=== PATIENT | female | born 1955 | race Caucasian/White ===

== ENCOUNTER 2020-11-23 21:36 | Inpatient (IN) | payer OTHER, SELFPAY ==
[2020-11-23 22:38] VITALS: BMI 31.7
[2020-11-23 22:41] VITALS: BP 156/69; PULSE 70; RESP 17; TEMP 36.4; O2SAT 99
--- NOTE | 2020-11-23 23:29 | DI.MRI.S_ITS ---
PROCEDURE: MR STROKE Pre- and post-contrast brain MRI, non-contrast brain MR angiogram, pre- and postcontrast neck MR angiogram INDICATIONS: Suspected TIA TECHNIQUE: Brain: Noncontrast axial T1 spin echo, axial T2 fast spin echo, sagittal and axial FLAIR, coronal T2 fast spin echo, axial gradient echo, axial diffusion and ADC through the brain. After the administration of contrast, axial 3D VIBE of the cranial vasculature and brain. Brain MRA: Non-contrast 3-D time of flight MR angiogram, with multiple gmrclpx-lwiinkxuk-sxrdvkqrhg (MIP) reformats performed. Neck MRA: Axial and sagittal TruFISP through the neck. Coronal dynamic MR angiogram during administration of contrast in the arterial and venous phases, with 3-dimenstional qiuvnrt-brpsqxtrw-tizvtjbcfv (MIP) reformats constructed from subtraction images. COMPARISON: None. FINDINGS: Image quality: Excellent. BRAIN: CSF spaces: Ventricles are normal in size and shape. Basal cisterns are patent. No extra-axial fluid collections. Brain: Within the right tashi, there is abnormal diffusion-weighted signal, as on series 26, image 59. There is associated dark signal seen on the ADC map as well as mild developing T2 weighted signal through this region. No intracranial bleeds or mass effects. Alfaro-white matter interface is normal. Brainstem appears normal. Normal intravascular flow voids are present. No abnormal intracranial enhancement. Skull and face: Calvarial marrow signal is normal. Orbits appear normal. Sinuses: An apparent mucous retention cysts can be seen within the inferior right maxillary sinus. Sinuses and mastoids are otherwise clear. BRAIN MR ANGIOGRAM: Anterior circulation: Intracranial internal carotid arteries are normal in size and enhancement. There is a hypoplastic right A1 segment, with a corresponding robust left A1 segment. This is considered to be a normal developmental variant of the [place], of typically no clinical consequence. The flow within the paired anterior cerebral arteries is otherwise normal and symmetric. The flow within the middle cerebral arteries is normal and symmetric. The anterior communicating artery is seen. No stenoses, occlusions, or aneurysms. Posterior circulation: The visualized portions of the vertebral arteries demonstrate normal caliber, and join to form a normal appearing basilar artery. Areas of left P1 segment narrowing can be seen, which measure up to 70%. The flow within the posterior cerebral arteries is otherwise normal and symmetric. No stenoses, occlusions, or aneurysms. NECK MR ANGIOGRAM: Carotids: Great vessels demonstrate a conventional anatomy as they arise from the aortic arch. The origins of the common carotid arteries appear patent. The calibers and courses of both common carotid arteries are normal. The bifurcation regions demonstrate atherosclerotic irregularity. There is 60-70% narrowing seen involving the right proximal internal carotid artery. There is 40-50% narrowing seen involving the left proximal internal carotid artery. The more distal internal carotid arteries demonstrate normal course and caliber. Posterior circulation: The origins of the vertebral arteries appear patent. More superior portions of both vertebral arteries demonstrate normal course and caliber, and join to form a normal appearing basilar artery. Miscellaneous: Subclavian arteries appear patent. Pre-contrast images through the neck show no soft tissue abnormalities. IMPRESSION: BRAIN MRI: Subacute right tashi infarct. BRAIN MR ANGIOGRAM: Hypoplastic right A1 segment noted, which is considered to be a developmental variant. Up to 70% narrowing seen involving the left P1 segment. NECK MR ANGIOGRAM: Focal narrowing is seen involving the proximal internal carotid arteries, right worse than left. Dictated by: Bud Ventura M.D. on 11/24/2020 at 9:28 Approved by: Bud Ventura M.D. on 11/24/2020 at 9:35
--- NOTE | 2020-11-23 23:35 | PC.NURSE ---
Pt to room 221 via ambulance from [facility]. Slider board and multiple staff members to transfer pt to bed. Pt is able to make needs and wants known to staff members. Oriented to call light and requested pt not attempt out of bed without calling for staff assistance. Pt verbalizes understanding. ANGEL Jane in to see patient.
--- NOTE | 2020-11-23 23:37 | DI.ECHO.S_ITS ---
[facility]---------+ [facility] +---------+ : : [address] : [place] : : : : [id number] : : : : Phone: [phone]---------+ Echocardiogram Report + + :Name: TAMIKA ARREOLA Study Date: 11/25/2020 Height: 71 in : :[facility] ReadingLocation: Weight: 227 lb : : Gender: Female BSA: 2.2 m2 : :: 1955 Age: 65 yrs BP: 146/62 mmHg: :Reason For Study: TIA : :Ordering Physician: Nataliya UREÑAformed By: Chelsea Mercado : :Referring: DARIAN UREÑA : + + Interpretation Summary The left ventricle is normal in size and wall thickness. Left ventricular systolic function appears normal without focal wall motion abnormalities. The ejection fraction is estimated to be 60-65%. Diastolic parameters suggest a relaxation abnormality of the left ventricle, consistent with probable normal filling pressures. The right ventricle is normal in size and function. Pulmonary artery pressures cannot be estimated because of the lack of a measurable TR jet velocity but the IVC suggests a CVP of around 3 mmHg. The left atrium is moderately dilated. Right atrial size is normal. There is no Doppler evidence for an interatrial shunt. Injection of contrast documented no interatrial shunt. There is no significant valvular heart disease. The aortic root is normal size. Procedure: A two-dimensional transthoracic echocardiogram with color flow and Doppler was performed. The study quality was technically adequate. There is no prior echocardiogram noted for this patient. A saline contrast injection was performed to assess for cardiac shunting. The patient was in sinus rhythm with heart rates between 61-71 bpm during the exam. Left Ventricle: The left ventricle is normal in size and wall thickness. Left ventricular systolic function appears normal without focal wall motion abnormalities. The ejection fraction is estimated to be 60-65%. Diastolic parameters suggest a relaxation abnormality of the left ventricle, consistent with probable normal filling pressures. Right Ventricle: The right ventricle is normal in size and function. Atria: The left atrium is moderately dilated. Right atrial size is normal. There is no Doppler evidence for an interatrial shunt. Injection of contrast documented no interatrial shunt. Mitral Valve: The mitral valve is normal in structure and function. There is trace mitral regurgitation. Aortic Valve: The aortic valve is trileaflet. The aortic valve opens well. There is no aortic valve stenosis. No aortic regurgitation is present. Tricuspid Valve: The tricuspid valve is normal in structure and function. There is trace tricuspid regurgitation. Pulmonary artery pressures cannot be estimated because of the lack of a measurable TR jet velocity but the IVC suggests a CVP of around 3 mmHg. Pulmonic Valve: The pulmonic valve leaflets are thin and pliable; valve motion is normal. There is no pulmonic valvular regurgitation. There is no significant valvular heart disease. Great Vessels: The aortic root is normal size. The dimensions of the ascending aorta are normal. The IVC is of normal diameter and collapses greater than 50% with a sniff. This suggests a low right atrial pressure of 3 mm Hg. Pericardium/ Pleura There is no pericardial effusion. There is no pleural effusion. MMode/2D Measurements & Calculations LVIDd: 4.5 cm LVOT diam: 2.0 cm LVIDs: 3.1 cm Ao root diam: 3.2 cm FS: 32.6 % asc Aorta Diam: 2.8 cm IVSd: 0.87 cm Ao Arch Diam (Prox Trans): 3.3 cm LVPWd: 0.73 cm LV cummings. diameter/BSA (cm/m^2): 2.0 LV sys. diameter/BSA (cm/m^2): 1.4 LA A2 area: 26.6 cm2 RA long axis: 5.0 cm LA A4 area: 21.6 cm2 RA area: 19.6 cm2 LA length (vol): 5.3 cm RA vol: 65.4 ml LA vol: 91.9 ml RA : 29.4 ml/m2 LA vol index: 41.3 ml/m2 IVC diam: 1.6 cm RVD1 (basal): 3.9 cm TAPSE: 2.3 cm Doppler Measurements & Calculations Ao V2 max: 154.1 cm/sec LVOT Max Mathieu: 92.4 cm/sec Ao V2 mean: 109.8 cm/sec LV V1 max P.4 mmHg Ao max P.5 mmHg LV V1 VTI: 22.2 cm Ao mean P.3 mmHg STORMY(I,D): 2.0 cm2 Ao V2 VTI: 33.9 cm STORMY(V,D): 1.9 cm2 sev ratio: 0.66 STORMY indexed to BSA (cm^2/m^2): 0.92 MV E max mathieu: 65.9 cm/sec PA V2 max: 103.9 cm/sec MV A max mathieu: 102.1 cm/sec PA V2 mean: 73.9 cm/sec MV E/A: 0.65 PA mean P.4 mmHg Med Peak E' Mathieu: 8.3 cm/sec PA pr(Accel): 37.9 mmHg E/E' med: 7.9 Lat Peak E' Mathieu: 5.9 cm/sec E/E' lat: 11.2 E/e' average: 9.6 MV dec time: 0.26 sec SV(LVOT): 69.0 ml Reading Physician:01:44 PM
--- NOTE | 2020-11-23 23:42 | P.HP_ITS ---
History of Present Illness History of Present Illness Date Patient Seen: 11/23/20 Time Patient Seen: 23:00 Chief complaint: Left sided weakness concerning for a CVA Narrative: Lesly Neri is a 65 y.o. female direct admit from [facility] for completion of a TIA workup. Patient has a history of hypertension, hyperlipidemia, depression and anxiety. She states that when she woke up this morning around 8 she started to text her sister and then went back to bed when she woke up at around 10:00 a.m. this morning she found that she had left-sided upper arm and left leg weakness. She found that she was dragging her left foot. She states that she was feeling horribly. She has an eaten all day. She states she has had chills but denies any problems with eating, she endorses having a ?racing heart? which has been going on for 6 months, she denies shor tness of breath or chest pain, she states that she has hunger pangs currently recently had a colonoscopy and felt that ever since the colonoscopy things have been ?wrong? in her abdomen. She states she has a history of chronic pain, she has been itching in her arms of which primary providers have seen her for and do not what know what the reason is, she states that she is depressed in [facility]. She states that she has easy bruising and left hip are arthritis and goes to a chiropractor. She has recently established with Dr. jerome and mildred in [place] as her primary care physician however prefers ?natural? or alternative medicine modalities. Patient states she has been under a lot of stress because she was called to a friend's house and found out that her friend had while out of town and has been cleaning her friends condominium out over the past few months. 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 She has not had the COVID-19 vaccine as she is unsure of its long-term affects. At [facility] they did a CT of the angio of the neck as well as the head both of studies of which were negative. On admission the patient is afebrile, blood pressure 156/79, heart rate 70, respiratory rate 17, oxygen saturation 99% on room air, she weighs 103.2 kg with a BMI of 31.7. Labs sent over for [facility] included WBC of 7.6 RBC 4.75 hemoglobin 14.4 hematocrit of 42.2 and a platelet count of 327, sodium is 135 potassium 4.3 chloride 97 bicarb 27 creatinine 1.1 with a EGFR of 50 BUN 11, glucose 116, calcium 9.6, liver enzymes are all within normal limits, UA was negative for UTI and viral PCR and COVID-19 PCR is negative. EKG done at [facility] was a normal sinus rhythm with normal morphology. A1c is 5.7 not indicating diabetes, Patient History Medical History Depression with anxiety Essential hypertension HLD (hyperlipidemia) Surgical History History of bunionectomy Hx of removal of thyroglossal duct cyst Hx of tonsillectomy Family & Social History Family History Mother Kidney failure Father Congestive heart failure CVA (cerebral vascular accident) Sister CVA (cerebral vascular accident) Diabetes mellitus DVT (deep venous thrombosis) Social History: household members none Prior Living Arrangements Apartment/Condo Safety & Behavioral: Feels Safe in Current Yes Environment Been Physically Hurt or No Threatened By a Person Suicidal Ideation Description None Suicide Plan Description No Plan Tobacco & Substance use: Smoking Status Never smoker alcohol intake never Substance Use Type does not use Meds Home Medications and Allergies Home Medications Medication Instructions Recorded Confirmed Type atorvastatin 40 mg tablet 40 mg PO DAILY 11/24/20 11/24/20 History buspirone 10 mg tablet 10 mg PO DAILY 11/24/20 11/24/20 History cholecalciferol (vitamin D3) 50 75 mcg PO DAILY 11/24/20 11/24/20 History mcg (2,000 unit) tablet (Vitamin D3) clotrimazole 1 % topical cream 1 applic TOPICAL TID 11/24/20 11/24/20 History fluoxetine 20 mg capsule 60 mg PO DAILY 11/24/20 11/24/20 History hydrochlorothiazide 25 mg tablet 25 mg PO DAILY 11/24/20 11/24/20 History hydroxyzine pamoate 25 mg capsule 75 mg PO BEDTIME 11/24/20 11/24/20 History temazepam 15 mg capsule 30 mg PO BEDTIME 11/24/20 11/24/20 History Allergies Allergy/AdvReac Type Severity Reaction Status Date / Time No Known Drug Allergies Allergy Verified 11/24/20 00:40 Review of Systems Review of Systems ROS: Yes All systems reviewed with the patient and are negative except as otherwise documented Exam Vital Signs (past 8 hours): - 11/23/20 22:41 Temperature 97.5 F L Pulse Rate 70 Respiratory Rate 17 Blood Pressure 156/69 H Pulse Oximetry 99 Oxygen Flow Rate 0 Narrative Exam Narrative: Gen: Alert, oriented, well-nourished 65 y.o. female, cushionoid appeariing HEENT: normocephalic, atraumatic, conjunctiva clear, sclera non-icteric, oral mucosa pink and moist Neck: supple, full ROM, no JVD, trachea is midline Resp: Lungs CTA, non-labored breathing CV: RRR, no murmur or rubs Abd: soft, non-tender, normoactive BTs Skin: no lesions or rashes, dry with multiple superficial appearing insect bites on upper extremities Neuro: Alert and oriented X 4 w/no focal deficits. Speech clear and coherent. Extremities: moves all 4 extremities, is ambulatory, negative Bebeto?s sign, trace bilateral edema Psyche: Mildly anxious affect. Objective ECG Impression: EKG done at [facility] was a normal sinus rhythm with normal morphology. Labs Result Diagrams: 11/24/20 00:38 11/24/20 00:38 Labs: Labs sent over for [facility] included WBC of 7.6 RBC 4.75 hemoglobin 14.4 hematocrit of 42.2 and a platelet count of 327, sodium is 135 potassium 4.3 chloride 97 bicarb 27 creatinine 1.1 with a EGFR of 50 BUN 11, glucose 116, karen cium 9.6, liver enzymes are all within normal limits, UA was negative for UTI and viral PCR and COVID-19 PCR is negative. Assessment & Plan Assessment & Plan narrative: Lesly Neri is a 65 y.o. female who will observed overnight for further evaluation to rule out TIA vs CVA. 1. Left sided weakness * GCS is 15 * Cardiac telemetry * NIH score greater than 5 yes * NIH scoring and neuro checks q 4 hours * Dual antiplatelet therapy: Yes initiate clopidogrel 75 mg p.o. daily and aspirin 81 mg p.o. daily * MR stroke scheduled for 11/24 * Complete Echo with bubble study for 11/24 * PT/OT/ST evaluation 2. Hypertension, acute with an admission bp of 156/69, present on admission * Allow for permissive hypertension of 220/110 HR 60 to allow for brain perfusion 3. HLD * Fasting Lipid panel in the am * Patient's home dose of atorvastatin is 40 mg po at bedtime, will start 80 mg at bedtime * Total cholesterol is 208, LDL 116, triglycerides 120 and HDL is 68. Risk stratification * Fasting lipid panel pending for the morning * A1c 5.7% VTE prophylaxis: Wells risk score: 0 Enoxaparin 40 mg subQ daily Consults: none Patient is observation status as her stay is not likely to exceed 2 midnights. FEN: IV saliine lock, Heart healthy diet, CMP and magnesium in the am. Dispo: probable discharge to home Code Status: Full Code as discussed with patient Roseline Neri, sister and surrogate/POA COVID-19 COVID-19 status: Negative Result date/Date tested (Pos, Neg/Pending): 11/23/20 Scores GCS Elfego coma scale eye opening: Spontaneous [place] coma scale verbal response: Orientated [place] coma scale motor response: Obey commands [place] coma scale total score: 15 Wells' Criteria for PE Clinical signs and symptoms of DVT: No PE is #1 Dx or equally likely: No Heart rate > 100: No Immobilization at least 3 days or surg in previous 4 weeks: No History of PE or DVT: No Hemoptysis: No Malignancy w/Treatment within 6 months or palliative: No Wells' PE Score total: 0 Quality VTE Deep Vein Thrombosis/Pulmonary Embolism Present on Admission: No
[2020-11-24] VITALS (7 sets, daily range): BP systolic 135–149; BP diastolic 56–81; PULSE 64–88; RESP 14–18; TEMP 36.1–36.9; O2SAT 94–98
[2020-11-24 00:53] LABS: Add Manual Diff / Slide Review NO; Basophils Absolute Auto 100 /uL (0-100); Basophils Percent Auto 0.8 % (0-2); Eosinophils Absolute Auto 100 /uL (0-450); Eosinophils Percent Auto 0.9 % (2-4); Hematocrit 43.3 % (36-46); Hemoglobin 14.5 g/dL (12.0-16.0); Lymphocytes Absolute Auto 2400 /uL (1100-4500); Lymphocytes Percent Auto 22.4 % (25-40); Mean Corpuscular HGB Conc 33.4 % (30-36); Mean Corpuscular Hemoglobin 29.4 PG (26-34); Mean Corpuscular Volume 87.9 fL (80-100); Monocytes Absolute Auto 900 /uL (0-900); Monocytes Percent Auto 8.5 % (3-14); Neutrophils Absolute Auto 7200 /uL (1500-7000); Neutrophils Percent Auto 67.4 % (50-75); Platelet Count 300 X10^3/uL (150-400); Red Blood Cell Count 4.93 X10^6/uL (4.0-5.2); Red Cell Distribution Width 13.5 % (11.6-14.8); White Blood Cell Count 10.7 X10^3/uL (4.5-11.0)
[2020-11-24 00:58] LABS: BUN Creatinine Ratio 10.1 (6-22); Blood Urea Nitrogen 9 mg/dL (7-17); Calcium 9.9 mg/dL (8.4-10.2); Carbon Dioxide 28 mmol/L (22-32); Chloride 104 mmol/L (98-107); Cholesterol 208 mg/dL (140-199); Estimated Glomerular Filt Rate > 60.0 mL/min (>60); Glucose 105 mg/dL (80-110); HDL Cholesterol 68 mg/dL (40-60); HEMOLYSIS < 15 (0-50); LDL Cholesterol Calculated 116 mg/dL (<100); Potassium 4.3 mmol/L (3.4-5.1); Sodium 139 mmol/L (137-145); Triglycerides 120 mg/dL (35-150)
[2020-11-24 00:59] LABS: Alanine Aminotransferase 24 IU/L (<35); Albumin 4.4 g/dL (3.5-5.0); Albumin Globulin Ratio 1.3 (1.0-2.8); Alkaline Phosphatase 74 U/L (38-126); Aspartate Aminotransferase 28 IU/L (14-36); Bilirubin Total 0.5 mg/dL (0.2-1.3); Bilirubin Unconjugated 0.3 mg/dL (0.0-1.1); Globulin 3.5 g/dL (1.7-4.1); HEMOLYSIS < 15 (0-50); Total Protein 7.9 g/dL (6.3-8.2)
[2020-11-24 01:06] LABS: Hemoglobin A1C% w Est Avg Glu 5.7 % (4.0-6.0)
[2020-11-24 01:16] LABS: Magnesium 2.1 mg/dL (1.6-2.3)
[2020-11-24] MEDS: TEMAZEPAM 15 MG CAPSULE 30 MG PO ×2 (01:21→20:32)
[2020-11-24] MEDS: hydrOXYzine pamoate 25 MG CAPSULE 75 MG PO ×2 (01:21→20:31)
[2020-11-24 01:35] LABS: Thyroid Stimulating Hormone 3.86 uIU/mL (0.47-4.68)
--- NOTE | 2020-11-24 03:14 | PC.NURSE ---
Patient is alert and oriented but anxious and very detailed in responses to questions. She does exhibit fine tremors in bilateral UE and restless legs. NIH was 5 due to left extremity weakness and ataxia. Breath sounds CTA with RA sat of 99%. HRR w/telemetry reading of SR. Denied nausea. BT present and abdomen is soft. Is able to move self in bed but when up to BSC is requiring 2 assists + walker and frequent cueing; is weak in left extremities and drags left leg. Denied pain. Fall risk score is high and bed alarm is activated.
[2020-11-24] MEDS: FLUoxetine 20 MG CAPSULE 60 MG PO (08:34)
[2020-11-24] MEDS: ENOXAPARIN 40 MG/0.4 ML SYRINGE SUBCUT (08:34)
[2020-11-24] MEDS: BUSPIRONE 5 MG TABLET 10 MG PO (08:34)
[2020-11-24] MEDS: ATORVASTATIN 20 MG TABLET 80 MG PO (08:34)
[2020-11-24] MEDS: ASPIRIN EC 81 MG TABLET PO (08:34)
[2020-11-24] MEDS: CLOPIDOGREL 75 MG TABLET PO (08:34)
[2020-11-24] MEDS: SODIUM CHLORIDE 0.9% FLUSH 10 ML IV ×2 (08:45→20:32)
--- NOTE | 2020-11-24 09:24 | OT.IP.EVAL ---
Past Medical History (Last Reviewed 11/24/20 @ 00:13 by ANGEL Lewis) Depression with anxiety Essential hypertension History of bunionectomy HLD (hyperlipidemia) Hx of removal of thyroglossal duct cyst Hx of tonsillectomy Surgical History (Last Reviewed 11/24/20 @ 00:13 by ANGEL Lewis) History of bunionectomy Hx of removal of thyroglossal duct cyst Hx of tonsillectomy Occupational Therapy Inpatient Evaluation/Re-Eval M1 PT/OT-IP Prior Functional Status Start: 11/24/20 11:35 Freq: NEEDED Status: Active Protocol: Document 11/24/20 11:36 CGR (Rec: 11/24/20 11:53 CGR [id number]) Medical Review Prior Functional Status Medical History Reviewed Yes Communication Pt is an effective verbal communicator but displays tangential thinking. Mobility and Gait Pt states that she was IND prior to admit. Activities of Daily Living and IADL's Pt states she was IND prior to admit but that she has a difficult time with LB dressing d/t L hip pain. Social History Household Members none Living Arrangements Apartment/Condo Number of Floors (Floors) One Floor Number of Stairs To Enter/Railing? Pt has no steps to enter Home Environment Standard Height Toilet,Tub/ Shower Additional Social History Comment Pt states that she has a flat bed and is no longer working. Pt with c/o her living situation calling her landlord a slum lord. Pt states that one of her good friends recently and she has been helping to clean out her apartment. M2 OT-IP Current Condition Start: 11/24/20 11:35 Freq: Status: Active Protocol: Document 11/24/20 11:36 CGR (Rec: 11/24/20 11:53 CGR [id number]) Occupational Therapy Current Condition Current Condition Evaluation Date 11/24/20 Treatment Diagnosis L sided weakness Diagnosis Onset Date 11/23/20 M3 OT- IP Subjective and Pain Start: 11/24/20 11:35 Freq: Status: Active Protocol: Document 11/24/20 11:36 CGR (Rec: 11/24/20 11:53 CGR [id number]) OT- Subjective Occupational Therapy Visit Type Type Initial Evaluation Visit Start Time 08:59 Visit Stop Time 09:24 Total Visit Minutes 25 Notes Transport arrived at end of session to take pt for MRI OT Pain Assessment Pain When Pain Assessed At Rest Pain Present Pain Present Denied Pain M4 OT- IP ADL's Start: 11/24/20 11:35 Freq: Status: Active Protocol: Document 11/24/20 11:36 CGR (Rec: 11/24/20 11:53 CGR [id number]) OT [id number] Comments OT Self-Feeding Comments Pt states that she had trouble eating d/t the shaking in her hand. OT ADL-Grooming General Evaluation Grooming Ability Standby Assistance Comments OT Grooming Comments washed hands seated in w/c OT ADL-Oral Care Comments Oral Care Comments not performed OT ADL-Dressing General Eval Lower Body Dressing Ability Minimal Assistance,Moderate Assistance Areas Needing Assistance Socks Comments OT Dressing Comments Performed to the R foot only. Needed assist to get sock onto foot then pt was able to pull it into place OT ADL-Toileting General Evaluation Toileting Ability Minimal Assistance Comments OT Toileting Comments Pt was able to urinate seated on BSC and needed verbal cues for partial stand to perform front pericare but was able to perform without physical assist. OT ADL-Bathing Comments OT Bathing Comments not performed M5 OT- IP IADL's Start: 11/24/20 11:35 Freq: Status: Active Protocol: Document 11/24/20 11:36 CGR (Rec: 11/24/20 11:53 CGR [id number]) OT-Instrumental Activities of Daily Living Deficits IADL Deficits Identified Deficits Home Safety Awareness Awareness of Need for Assistance at Home Decreased Awareness Ability to Problem Solve Emergency Unable to Problem Solve Situations Medication Management Medication Management Comments Concern for pt's ability to perform Money Management Money Management Comments Concern for pt's ability to perform Meal Preparation Meal Preparation Comments Concern for pt's ability to perform News Technical Director News Technical Director Comments Concern for pt's ability to perform Driving Driving Concerns Identified Regarding Safety Driving Comments 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 M6 OT- IP Functional Cognition Start: 11/24/20 11:35 Freq: Status: Active Protocol: Document 11/24/20 11:36 CGR (Rec: 11/24/20 11:53 CGR [id number]) Cognitive Factors Limiting Selfcare Function Cognitive Ability Level of Alertness Alert Patient Orientation Name,Age,Birthday,Month,Date, Year,Day of Week,Place, Situation Attention Span Ability Unable to Focus,Unable to Sustain Attention Ability to Follow Commands Able to Follow One Step Commands with Increased Time, Able to Follow One Step Commands with Repetition Cognitive Comments Cognitive Assessment Comments Pt appears confused and with tangential thinking. Speech therapy planned to perform SLUMS with pt today. OT- Vision and Hearing OT- Hearing Assessment OT- Hearing Assessment Hearing Impaired,Use of Hearing Aids OT- Vision Assessment Visual Acuity Glasses All The Time Visual Attentiveness WFL Occular Pursuits WFL Visual Convergence Impaired Vision Assessment Comments Pt wears bifocals M7 OT- IP Mobility and Balance Start: 11/24/20 11:35 Freq: Status: Active Protocol: Document 11/24/20 11:36 CGR (Rec: 11/24/20 11:53 CGR [id number]) OT-Transfer Assessment Sit to and From Stand Sit to and from Stand Moderate Assistance,1 Person Assistance Transfers Transfer Ability Moderate Assistance,1 Person Assistance Technique Transfer Destination Bedside Commode,Chair, Wheelchair Transfer Technique Stand Step Pivot Devices Transfer Assistive Devices Gait Belt,Front Wheeled Walker Comments Mobility Comments Pt was able to perform stand pivot transfer with mod a from chair to BSC then to the w/c. OT- Balance Assessment Sitting Balance and Reactions Static Sitting Balance Ability Good Dynamic Sitting Balance Ability Fair M8 OT- IP Objective Assessments Start: 11/24/20 11:35 Freq: Status: Active Protocol: Document 11/24/20 11:36 CGR (Rec: 11/24/20 11:53 CGR [id number]) OT Gross Range of Motion Upper Extremity Range of Motion Assessment Left Impaired ROM Impairments AROM on LUE impaired d/t poor control and strength OT Strength Upper Extremity Strength Assessment Left Impaired Comments Strength Comments grossly 3- to 3+ to the LUE OT- Coordination Assessment Upper Extremity Finger to Nose Test Left UE Impaired Finger Tapping Test Left UE Impaired OT-Muscle Tone Assessment Muscle Tone WNL Yes OT Sensation Assessment Edema Edema Absent M9 OT- IP Assessment and Plan Start: 11/24/20 11:35 Freq: Status: Active Protocol: Document 11/24/20 11:36 CGR (Rec: 11/24/20 11:53 CGR [id number]) OT Summary Assessment and Plan Potential Rehabilitation Potential Good Analytic Complexity at Evaluation High Summary OT Impairments Range of Motion,Strength, Balance,Coordination, Functional Cognition, Functional Mobility,Self- Feeding,Grooming,Dressing, Toileting,Bathing,Toilet Transfers,Shower Transfers, Activity Tolerance Progress Towards Goals Slow Progress due to Activity Tolerance,Slow Progress due to Cognition Assessment Summary Pt presents as a high complexity evaluation s/p admit for L sided weakness. Pt displays L sided weakness and possible cognitive deficit. Pt will need SNF upon discharge as pt lives alone and has little to no support. Recommend continued OT services while hospitalized. Goals Self-Feeding Goal Independent Grooming Goal Independent Dressing Goal Independent Toileting Goal Independent Bathing Goal Independent Toilet Transfer Goal Independent Shower Transfer Goal Independent Days to Meet Goals 30 Frequency of Treatment Frequency Of Treatment Once a Day Treatment Plan OT Treatment Plan ADL Training,Functional Cognition Training,Functional Mobility,Neuromuscular Re- education,Therapeutic Exercises,Patient/Family Education,Discharge Planning Other Treatment Recommendations and Next L UE therex, ADLs seated vs Treatment Focus standing. Discharge Recommendations OT Discharge Recommendations SNF Rehab Transportation Needs at Discharge Wheelchair/Cabulance
--- NOTE | 2020-11-24 09:34 | PC.NURSE ---
Day shift: Pt off unit for MRI at approx 0930. Off tele and FREIGHT BREAKER aware.
--- NOTE | 2020-11-24 10:50 | PT.IIE ---
Medical History (Last Reviewed 11/24/20 @ 00:13 by ANGEL Lewis) Depression with anxiety Essential hypertension HLD (hyperlipidemia) Physical Therapy Inpatient Evaluation/Re-Eval M1 PT/OT-IP Prior Functional Status Start: 11/24/20 11:35 Freq: NEEDED Status: Active Protocol: Document 11/24/20 11:36 CGR (Rec: 11/24/20 11:53 CGR [id number]) Medical Review Prior Functional Status Medical History Reviewed Yes Communication Pt is an effective verbal communicator but displays tangential thinking. Mobility and Gait Pt states that she was IND prior to admit. Activities of Daily Living and IADL's Pt states she was IND prior to admit but that she has a difficult time with LB dressing d/t L hip pain. Social History Household Members none Living Arrangements Apartment/Condo Number of Floors (Floors) One Floor Number of Stairs To Enter/Railing? Pt has no steps to enter Home Environment Standard Height Toilet,Tub/ Shower Additional Social History Comment Pt states that she has a flat bed and is no longer working. Pt with c/o her living situation calling her landlord a [place] lord. Pt states that one of her good friends recently and she has been helping to clean out her apartment. M2 PT-IP Current Condition Start: 11/24/20 12:29 Freq: NEEDED Status: Active Protocol: Document 11/24/20 10:50 AB (Rec: 11/24/20 12:42 AB [id number]) Physical Therapy Current Condition Current Condition Evaluation Date 11/24/20 Treatment Diagnosis CVA L sided weakness; difficulty in walking Onset Date 11/23/20 Precautions Other Precautions falls M3 PT-IP Subjective Start: 11/24/20 12:29 Freq: NEEDED Status: Active Protocol: Document 11/24/20 10:50 AB (Rec: 11/24/20 12:42 AB [id number]) Subjective Physical Therapy Visit Type Type Initial Evaluation Visit Start Time 10:50 Visit Stop Time 11:23 Total Visit Minutes 33 Number of AIR BRUSH DECORATOR Visits 0 Physical Therapy Visit Comments Patient Comments agreeable to do PT M4 PT-IP Mobility and Gait Start: 11/24/20 12:29 Freq: NEEDED Status: Active Protocol: Document 11/24/20 10:50 AB (Rec: 11/24/20 12:42 AB [id number]) PT-Bed Mobility Assessment Supine to Sit Supine to Sit Maximum Assistance,1 Person Assistance,Head of Bed Elevated,Bedrails PT-Transfer Assessment Sit to and From Stand Sit to and from Stand Maximum Assistance,1 Person Assistance,Use of Upper Extremities Equipment Transfer Assistive Device Gait Belt,Front Wheeled Walker Orthotic/Prosthetic Devices or Brace: No Transfers Transfer Destination Chair Transfer Technique Stand Step Pivot Transfer Ability Level of Assist Maximum Assistance,1 Person Assistance,2 Person Assistance ,Use of Upper Extremities Comments Mobility Comments pt completed supine to sit HOB elevated max A and max cues. required mod to max A with initial sitting with increase posterior trunk LOB. positioned pt on EOB and required min A for sitting balance. continues to has posterior trunk lean. completed sit to stand from EOB max A and cues and completed step pivot to the chair max A x 1-2 using FWW and max cues. attempted to ambulated but only able to take 1-2 steps using FWW with (+) L knee buckling . assisted to sitting positioned . call light and table placed within reach. Gait Assessment Gait Gait Assistance Required: Maximum Assistance,2 Person Assist Distance (Feet) 1 Able to Maintain Weight Bearing Status No During Gait Assistive Devices Assistive Device Gait Belt,Front Wheeled Walker Orthotic/Prosthetic Devices or Brace: No Factors Limiting Gait Function Factors Limiting Gait Function Decreased Activity Tolerance, Decreased Strength,Difficulty Following Directions,Poor Balance,Poor Safety Awareness Comments Gait Comments pls refer to mobility section for details PT-Balance Assessment Sitting Balance and Reactions Static Sitting Balance Ability Poor Dynamic Sitting Balance Ability Poor Standing Balance and Reactions Static Standing Balance Ability Poor Dynamic Standing Balance Ability Poor Device Used FWW M5 PT-IP Objective Assessments Start: 11/24/20 12:29 Freq: NEEDED Status: Active Protocol: Document 11/24/20 10:50 AB (Rec: 11/24/20 12:42 AB [id number]) Orientation Orientation/Cognition Level of Alertness Alert Orientation Name,Place,Situation Safety Awareness Decreased Safety Awareness Gross Range of Motion Lower Extremity ROM Assessment Within Functional Limits Strength Lower Extremity Strength Assessment Left Impaired Hip 3+/5 Knee 3/5 Muscle Tone Muscle Tone WNL Yes M6 PT-IP Treatment Start: 11/24/20 12:29 Freq: NEEDED Status: Active Protocol: Document 11/24/20 10:50 AB (Rec: 11/24/20 12:42 AB [id number]) Physical Therapy Treatment Education Education Provided Safety M7 PT-IP Assessment and Plan Start: 11/24/20 12:29 Freq: NEEDED Status: Active Protocol: Document 11/24/20 10:50 AB (Rec: 11/24/20 12:42 AB [id number]) PT Summary Assessment and Plan Potential Rehabilitation Potential Good Status of Condition at Evaluation Evolving Summary Impairments Pain,ROM,Strength,Balance, Coordination,Sensation,Tone, Cognition,Bed Mobility, Transfers,Gait,Activity Tolerance Assessment Summary pt requiring max A x 1-2 and max cues with all tasks. Pt with L sided weakness with (+) L knee buckling during standing. pt will benefit from acute rehab vs SNF rehab to improve strength and mobility independence. Goals Bed Mobility Goal Standby Assistance Transfer Goal Minimal Assistance,Front Wheeled Walker Gait Goal Minimal Assistance,Front Wheel Walker Gait Distance 50 Other Goals improve transfers and ambulation using FWW 100 ft CGA Days to Meet Goals 10 Frequency of Treatment Frequency Of Treatment Twice a Day Treatment Plan Physical Therapy Treatment Plan Bed Mobility Training,Transfer Training,Gait Training, Therapeutic Exercise,Balance Retraining,Discharge Planning, Hot or Cold Pack,Neuromuscular Re-ed,Coordination Retraining ,Manual Therapy Precautions Other Precautions falls Recommendations To Nursing Amount of Assist Needed 2 Person Assist Discharge Recommendations PT Discharge Recommendations SNF vs Acute Rehab Transportation Needs at Discharge Wheelchair/Cabulance
--- NOTE | 2020-11-24 12:38 | ST.IPCSEOM ---
Visit Care Team Role Provider Type ANGEL Lewis Admit Provider Physician Attending Provider Referring Provider Specialty: Internal Medicine Address: [address] [place] [address], [id number] Email: [email or web address] Past Medical History (Last Reviewed 11/24/20 @ 00:13 by ANGEL Lewis) Depression with anxiety (Medical) Essential hypertension (Medical) History of bunionectomy (Medical) HLD (hyperlipidemia) (Medical) Hx of removal of thyroglossal duct cyst (Medical) Hx of tonsillectomy (Medical) Speech-Language Pathology Swallow Evaluation INTERNATIONAL GUEST COORDINATOR Clinical Swallow Evaluation Start: 11/24/20 12:15 Freq: Status: Active Protocol: Document 11/24/20 12:16 MG (Rec: 11/24/20 12:38 MG [id number]) Clinical Swallow Evaluation Session Time Visit Start Time 11:30 Visit Stop Time 12:15 Total Visit Minutes 45 Setting Assessment Location Acute Care Visit Type Note Type Initial evaluation Next Note Type Next Note Type Treatment Note Patient Information Identification Type Name,Wristband History Pt is a 65 y.o. female direct admit from [facility] for completion of a TIA workup. Patient has a history of hypertension, hyperlipidemia, depression and anxiety. She states that when she woke up yesterday morning around 8 she started to text her sister and then went back to bed when she woke up at around 10:00 a .m. she found that she had left-sided upper arm and left leg weakness. She found that she was dragging her left foot . She states that she was feeling horribly. She hasn't eaten all day. She states she has had chills but denies any problems with eating, she endorses having a ?racing heart? which has been going on for 6 months, she denies shortness of breath or chest pain, she states that she has hunger pangs currently, recently had a colonoscopy and felt that ever since the colonoscopy things have been ? wrong? in her abdomen. She states she has a history of chronic pain, she has been itching in her arms of which primary providers have seen her for and do not what know what the reason is. She states that she has easy bruising and left hip are arthritis and goes to a chiropractor. 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 Brain MRI done shows subacute right tashi infarct. Subjective Observations Pt was resting in chair at bedside after working with PT. Pt was agreeable to speech/ language evaluation being conducted. Of note, pt has left sided facial weakness and reports that this is new to her. Pt reports that she has TMJ; diagnosed at 21. Pt also reports that prior to hospital admittance, she was gravitating towards a softer diet as she has difficulty with chewing/swallowing. Pt reported that breakfast was challenging for her to consume due to shaking hands and difficulty with mastication. Reported by Patient Other Symptoms Other Comment Protocol following admittance and pt reports history of difficulty swallowing prior to entering hospital. Current Diet Regular,Thin liquids Baseline Feeding Method Needs some assistance Type of Patient Questionnaire (e.g., EAT SLUMS -10, MDADI, etc.) Results Of note, OT requested INTERNATIONAL GUEST COORDINATOR to administer SLUMS assessment due to cognition concerns. Pt scored a 20/30, indicating there is cognitive impairment. Pt reported that she keeps notepads and journals at home to help with her memory and endorses having word finding difficulty. INTERNATIONAL GUEST COORDINATOR presented pt with word finding strategies to apply. Objective Assessment Mental Status Alert,Responsive,Cooperative Oral Integrity WFL Dentition Missing teeth,Decay Lip Function Mild impairment Observation of Lips at Rest Left sided weakness/Drooping Pucker Left sided weakness/drooping Lip Retraction Left sided weakness/Drooping Alternating Pucker/Lip Retraction Reduced range of motion Tongue Function Moderate impairment Observations of Tongue at Rest Within normal limits Tongue Protrusion Reduced range of motion, Reduced strength Tongue Retraction Reduced range of motion, Reduced strength Tongue Lateralization Reduced range of motion, Reduced strength Jaw Function Moderate impairment Observations of Jaw at Rest Reduced range of motion Jaw Opening Reduced range of motion, Reduced strength Jaw Closing Reduced range of motion, Reduced strength Jaw Lateralization Reduced range of motion, Reduced strength Hard/Soft Palate Function Within normal limits Observations of Hard/Soft Palate Within normal limits Nasality Within normal limits Phonation Within normal limits Respiratory Sufficiency Within normal limits Comment Formal OME concludes that there is oral impairments. Pt presents with mild dysarthria secondary to left sided weakness. Overall pt is intelligible in conversational speech with some imprecise articulation noted. Pt overall has reduced range of motion and strength in all articulators. Food and Liquid Trials Position During Assessment Upright (90 degrees) Liquids Trialed Ice chips,Thin Solids Trialed Puree,Dysphagia Mechanical, Dysphagia Advanced Administration Type Tea spoon,Cup single sip,Cup consecutive sips,Straw,Needs some assistance Oral Impairment Moderately impaired Oral Phase Comments On puree and dysphagia mechanical texture, pt masticated properly and no pocketing on the left side was seen. On dysphagia advanced trial, pt masticated for an extended period of time. Pt required multiple liquid washes to clear texture form the oral cavity successfully. Pt reported this texture was very difficult for her to masticate. Pharyngeal Impairment Within functional limits Pharyngeal Phase Comments Laryngeal palpation indicated adequate hyolarngeal elevation and anterior hyoid excursion. On all solid/liquid, no overt s/sx of aspiration were noted . No wet/gurgly voice observed as well. Head turn to the left appeared to improve the swallowing function, as reported by the pt. Fatigue/Endurance Mild fatigue Comment Pt appeared to become slightly fatigued after finishing dysphagia advanced texture. Strategies Attempted Head tilt Response/Comments To the left Findings Swallowing Function Oral phase dysphagia Severity of Swallow Impairment Mildly-moderately impaired Contributing Factors to Swallow Reduced alertness or attention Impairment ,Reduced oral strength/ coordination/sensation, Mastication inefficiency Prognosis Good Based on Age,Duration of symptoms/ severity,Other (comment) Comment Following safe swallowing strategies and motivation. Impact on Safety and Functioning Risk for aspiration Recommendations Instrumental Assessment No Swallowing Treatment Yes Frequency x1-x2 for diet tolerance and further education as needed Recommended Solids Dysphagia Mechanical Recommended Liquids Thin Other Recommendations Head tilt to left Safety Precautions/Swallowing Remain upright (90 degrees) Recommendations during all oral intake,Small bites and sips when eating, Slow rate; swallow between bites,Alternate liquids and solids,Check for pocketing Medication Recommendations As Tolerated Discharge Recommendations detention facility Education Patient/Caregiver Education Described results of evaluation,Patient expressed understanding of evaluation, Patient expressed agreement with goals & treatment plans, Patient expressed understanding of safety precautions,Patient expressed understanding of feeding recommendations,Patient requires further education/ training Goals Short-term Goals Pt will follow safe swallowing precautions with minimal verbal reminders to reduce risk of aspiration. Pt will participate in education re: dysarthria, dysphagia, and memory strategies Long-term Goals Pt will tolerate least restrictive diet without demonstrating overt s/sx of aspiration. Pt will follow safe swallowing precautions independently to reduce risk of aspiration.
--- NOTE | 2020-11-24 13:35 | PT.IPTN ---
Physical Therapy Treatment Note M2 PT-IP Current Condition Start: 11/24/20 12:29 Freq: NEEDED Status: Active Protocol: Document 11/24/20 10:50 AB (Rec: 11/24/20 12:42 AB [id number]) Physical Therapy Current Condition Current Condition Evaluation Date 11/24/20 Treatment Diagnosis CVA L sided weakness; difficulty in walking Onset Date 11/23/20 Precautions Other Precautions falls M3 PT-IP Subjective Start: 11/24/20 12:29 Freq: NEEDED Status: Active Protocol: Document 11/24/20 13:35 AB (Rec: 11/24/20 15:08 AB [id number]) Subjective Physical Therapy Visit Type Type Treatment Note Visit Start Time 13:35 Visit Stop Time 14:00 Total Visit Minutes 25 Number of POULTRY SCALDER Visits 0 Physical Therapy Visit Comments Patient Comments pt is agreeable to do PT M4 PT-IP Mobility and Gait Start: 11/24/20 12:29 Freq: NEEDED Status: Active Protocol: Document 11/24/20 13:35 AB (Rec: 11/24/20 15:08 AB [id number]) PT-Bed Mobility Assessment Sit to Supine Sit to Supine Maximum Assistance,1 Person Assistance,2 Person Assistance ,Head of Bed Elevated,Bedrails PT-Transfer Assessment Sit to and From Stand Sit to and from Stand Maximum Assistance,1 Person Assistance,2 Person Assistance ,Use of Upper Extremities Equipment Transfer Assistive Device Gait Belt,Front Wheeled Walker Orthotic/Prosthetic Devices or Brace: No Transfers Transfer Destination Bed,Toilet Transfer Technique Stand Step Pivot Transfer Ability Level of Assist Maximum Assistance,2 Person Assistance,Use of Upper Extremities Comments Mobility Comments pt sitting on chair. requested to use the toilet. bedside commode postioned next to pt. pt completed sit to stand max A x 1-2 and max cues . continues to have (+) L knee buckling and requires cues and max A for stability. completed step transfer to bedside commode max A x 2 and max cues. pt completed sit to stand from the bedside commode max A x 1 -2 and max cues. ambulated ~ 3 ft to the bed using FWW max A x 2 and max cues. required assist for LLE positioning and propulsion due to weakness and decrease motor control and stability and max cues. completed sit to supine max A and max cues. positioned pt in bed. call light and table placed within reach. Gait Assessment Gait Gait Assistance Required: Maximum Assistance,2 Person Assist Distance (Feet) 3 Able to Maintain Weight Bearing Status Yes During Gait Assistive Devices Assistive Device Gait Belt,Front Wheeled Walker Orthotic/Prosthetic Devices or Brace: No Gait Deviations General Gait Pattern Decreased Stride Length, Decreased Feet Clearance Factors Limiting Gait Function Factors Limiting Gait Function Decreased Activity Tolerance, Decreased Strength,Difficulty Following Directions,Pain,Poor Balance,Poor Safety Awareness Comments Gait Comments pls refer to mobility section for details M5 PT-IP Objective Assessments Start: 11/24/20 12:29 Freq: NEEDED Status: Active Protocol: Document 11/24/20 10:50 AB (Rec: 11/24/20 12:42 AB [id number]) Orientation Orientation/Cognition Level of Alertness Alert Orientation Name,Place,Situation Safety Awareness Decreased Safety Awareness Gross Range of Motion Lower Extremity ROM Assessment Within Functional Limits Strength Lower Extremity Strength Assessment Left Impaired Hip 3+/5 Knee 3/5 Muscle Tone Muscle Tone WNL Yes M6 PT-IP Treatment Start: 11/24/20 12:29 Freq: NEEDED Status: Active Protocol: Document 11/24/20 13:35 AB (Rec: 11/24/20 15:08 AB [id number]) Physical Therapy Treatment Education Education Provided Safety M7 PT-IP Assessment and Plan Start: 11/24/20 12:29 Freq: NEEDED Status: Active Protocol: Document 11/24/20 13:35 AB (Rec: 11/24/20 15:08 AB [id number]) PT Summary Assessment and Plan Potential Rehabilitation Potential Fair Summary Impairments Pain,ROM,Strength,Balance, Coordination,Sensation,Tone, Cognition,Bed Mobility, Transfers,Gait,Activity Tolerance Progress Towards Goals Slow Progress due to Medical Issues,Slow Progress due to Activity Tolerance Assessment Summary pt continues to require max A x 2 for transfers using FWW with (+) L knee buckling. pt also has decrease trunk control affecting balance and mobility. pt will require further PT and will need acute rehab vs SNF to improve mobility and functional independence. Goals Bed Mobility Goal Standby Assistance Transfer Goal Minimal Assistance,Front Wheeled Walker Gait Goal Minimal Assistance,Front Wheel Walker Gait Distance 50 Other Goals improve transfers and ambulation using FWW 100 ft CGA Days to Meet Goals 10 Frequency of Treatment Frequency Of Treatment Twice a Day Treatment Plan Physical Therapy Treatment Plan Bed Mobility Training,Transfer Training,Gait Training, Therapeutic Exercise,Balance Retraining,Discharge Planning, Hot or Cold Pack,Neuromuscular Re-ed,Coordination Retraining ,Manual Therapy Recommendations To Nursing Amount of Assist Needed 2 Person Assist Discharge Recommendations PT Discharge Recommendations SNF vs Acute Rehab Transportation Needs at Discharge Wheelchair/Cabulance
--- NOTE | 2020-11-24 14:36 | CM.DANOTE ---
Addendum entered by Emerita Trinh LPN 11/24/20 15:17: [place] Dur[place] [facility] [place] and phone conversation. He notes they cannot start on the insurance auth process until Thursday but will present to his physician for consideration of acceptance. Referral also to Mart/[email or web address]: she confirms they do contact with [employer] Medicare programs and that beds are expected next week. She is aware that pt is not vaccinated. Will keep pt updated and be following again tomorrow. Original Note: Discharge Planning/Care Management DCP: assessment: case received, EMR reviewed. Discussed this afternoon with Dr. Lauren who notes that pt has a confirmed CVA, OT/PT/WINDOW DRAPER are ordered and best d/c d/c would likely be INPT Rehab if pt's situation and insurance specifics allowed for same. Met then with pt and introduced self and role. Pt is a 65 year old female who admitted to care of hospitalist team last night. Admission status: INPT: confirmed by UR VIKRAM Wilkes. Payer: listed as [facility] (with a note from admission counselor Roseline Meng stating that the info they had for pt's VA insurance seemed not to be complete). pt confirms that she signed up for Medicare and chose a [employer] Plan ([employer] [place] PPO) She provides this card as well as her ID/drivers license and her VA cards. PCP: she notes she is now [facility] to a [facility] community program and so was able to book an appt with Jason Pastrana and with a new pt appointment set for December 10. Asked about vaccine status and explained this may impact where she can obtain her rehab and why. She says she always wears a mask but thus far has chosen not to get vaccinated as she is not feeling that it is safe. Pt is aware that INPT rehab or snf is being recommended and hopes for INPT but undestands snf may also need to be considered. 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 I have been having a hard time during the pandemic. At this time pt is getting max assist with therapy and her first PT eval recommends inpt vs snf. Have updated Dr. Lauren re all this and she acknowledges the challenges involved in the d/c disposition. CM Discharge Assessment Start: 11/24/20 14:32 Freq: Status: Active Protocol: Document 11/24/20 14:33 ITV (Rec: 11/24/20 14:36 ITV [id number]) Discharge Planning Assessment Advance Directives? No History Provided By Patient,Medical Record Has Patient been admitted in last 30 No days? Prior Living Arrangements Apartment/Condo Comment apartment Household Members none Type of transporation used prior to Drives own vehicle admit Independent with ADL's Yes Is patient alert and oriented? Yes Comment inpt acute rehab vs snf Whiteboard Updated in Patient Room with Yes name and ext. # of Environmental Services Manager Review Status In Process
--- NOTE | 2020-11-24 16:53 | PM.PN.1 ---
Subjective Subjective Interval history: Patient is a 65-year-old female admitted to the hospital with an acute stroke. She continues to have significant left arm left leg hemiparesis, patient has left facial droop as well. Exam Vital Signs (past 8 hours): - 11/24/20 09:34 11/24/20 10:00 11/24/20 14:00 Temperature 98.5 F 98.1 F Pulse Rate 80 76 Respiratory Rate 14 18 Blood Pressure 142/62 H 138/72 Pulse Oximetry 97 97 98 11/24/20 16:03 Temperature 97.0 F L Pulse Rate 74 Respiratory Rate 18 Blood Pressure 146/81 H Pulse Oximetry 96 Oxygen Delivery Method Room Air Oxygen Flow Rate 0 Narrative Exam Narrative: Ill-appearing female with left face left arm droop HENMT Other: Left facial droop Mild slurring of her speech Eyes Other: Extraocular muscles are intact Resp Other: Lungs clear to auscultation Cardio Other: Cardiac exam regular rate and rhythm normal S1-S2 GI Other: Abdomen soft nontender nondistended Neuro Other: Patient with left facial droop, left upper extremity hemiparesis, left leg weakness, Extrem Other: Extremity no edema Objective Labs Result Diagrams: 11/24/20 00:38 11/24/20 00:38 Labs: Laboratory Results - last 24 hr 11/24/20 11/24/20 11/24/20 00:38 00:38 00:38 WBC 10.7 RBC 4.93 Hgb 14.5 Hct 43.3 MCV 87.9 MCH 29.4 MCHC 33.4 RDW 13.5 Plt Count 300 Neut % (Auto) 67.4 Lymph % (Auto) 22.4 L [place] % (Auto) 8.5 Eos % (Auto) 0.9 L Baso % (Auto) 0.8 Neut # (Auto) 7200 H Lymph # (Auto) 2400 [place] # (Auto) 900 Eos # (Auto) 100 Baso # (Auto) 100 Sodium 139 Potassium 4.3 Chloride 104 Carbon Dioxide 28 BUN 9 Creatinine 0.89 Estimated GFR > 60.0 BUN/Creatinine Ratio 10.1 Glucose 105 Hemoglobin A1c 5.7 Calcium 9.9 Magnesium Total Bilirubin Conjugated Bilirubin Unconjugated Bilirubin AST ALT Alkaline Phosphatase Total Protein Albumin Globulin Albumin/Globulin Ratio Triglycerides 120 Cholesterol 208 H LDL Cholesterol, Calc 116 H HDL Cholesterol 68 H TSH 11/24/20 11/24/20 11/24/20 00:38 00:38 00:38 WBC RBC Hgb Hct MCV MCH MCHC RDW Plt Count Neut % (Auto) Lymph % (Auto) [place] % (Auto) Eos % (Auto) Baso % (Auto) Neut # (Auto) Lymph # (Auto) [place] # (Auto) Eos # (Auto) Baso # (Auto) Sodium Potassium Chloride Carbon Dioxide BUN Creatinine Estimated GFR BUN/Creatinine Ratio Glucose Hemoglobin A1c Calcium Magnesium 2.1 Total Bilirubin 0.5 Conjugated Bilirubin 0.0 Unconjugated Bilirubin 0.3 AST 28 ALT 24 Alkaline Phosphatase 74 Total Protein 7.9 Albumin 4.4 Globulin 3.5 Albumin/Globulin Ratio 1.3 Triglycerides Cholesterol LDL Cholesterol, Calc HDL Cholesterol TSH 3.86 PFSH Medical History Depression with anxiety Essential hypertension HLD (hyperlipidemia) Surgical History History of bunionectomy Hx of removal of thyroglossal duct cyst Hx of tonsillectomy Family History Mother Kidney failure Father Congestive heart failure CVA (cerebral vascular accident) Sister CVA (cerebral vascular accident) Diabetes mellitus DVT (deep venous thrombosis) Social History household members: none Smoking Status: Never smoker alcohol intake: never Assessment & Plan Assessment & Plan narrative: Impression 1. 65-year-old female admitted to the hospital with an acute CVA -MRI Within the right tashi, there is abnormal diffusion-weighted signal, as on series 26, image 59. There is associated dark signal seen on the ADC map as well as mild developing T2 weighted signal through this region. No intracranial bleeds or mass effects. Alfaro-white matter interface is normal. Brainstem appears normal. Normal intravascular flow voids are present. No abnormal intracranial enhancement. Skull and face: Calvarial marrow signal is normal. Orbits appear normal. Sinuses: An apparent mucous retention cysts can be seen within the inferior right maxillary sinus. Sinuses and mastoids are otherwise clear. -continue Plavix and aspirin -continue to observe blood pressure, for permissive hypertension -consider starting YOMAIRA-inhibitor tomorrow -given patient's history of palpitations, and acute likely embolic infarct, would recommend outpatient event monitor -patient will likely need post discharge rehabilitation, acute versus subacute -continue PT OT and speech 2. Hypertension -will observe closely -initiate blood pressure medication tomorrow 3. Hyperlipidemia -continue high-dose statin 4. DVT prophylaxis -Lovenox 40 mg daily 5. Depression -CONTINUE FLUOXETINE Quality VTE Deep Vein Thrombosis/Pulmonary Embolism Present on Admission: No
--- NOTE | 2020-11-24 22:23 | PC.NURSE ---
Shift note: Patient is AxOx3, can make needs known. NIH 10, increased from day shift of 6. Notified SPEECH INSTRUCTOR who reassessed. Patient having mild to moderate slurring of words, facial droop, unable to move left arm and limited movement of left leg. Even with 2 person assist to BSC, ambulation becoming a concern for safety, transitioned to bedpan for safety which patient used effectively. High fall risk d/t mobility, bed alarm on and functioning, call light in reach.
[2020-11-25] VITALS (9 sets, daily range): BP systolic 117–149; BP diastolic 61–89; PULSE 57–70; RESP 14–21; TEMP 35.6–36.6; O2SAT 96–97
--- NOTE | 2020-11-25 02:17 | PC.NURSE ---
Patient seen and assessed earlier. Is alert and oriented. Does now have a mild left facial droop, left UE ataxia/flaccidity and still with weakness in left LE with resultant NIH of 7. Feels she is slurring some words but not noticeable at this time. Breath sounds CTA with RA sat of 96%. HRR; telemetry reading was SB. BP elevated at 142/89 but allowing for permissive hypertension. Denied nausea. BT present and abdomen is soft. Voided per bedpan. No longer able to use walker due to loss of movement in left UE so assisted into recliner with 3 assists. Patient displays minor right UE tremors and restless legs. Denied pain. Fall risk score is high and bed/chair alarm being used.
[2020-11-25] MEDS: ASPIRIN EC 81 MG TABLET PO (09:59)
[2020-11-25] MEDS: ENOXAPARIN 40 MG/0.4 ML SYRINGE SUBCUT (09:59)
[2020-11-25] MEDS: FLUoxetine 20 MG CAPSULE 60 MG PO (10:00)
[2020-11-25] MEDS: SODIUM CHLORIDE 0.9% FLUSH 10 ML IV ×2 (10:00→20:18)
[2020-11-25] MEDS: CLOPIDOGREL 75 MG TABLET PO (10:00)
[2020-11-25] MEDS: ATORVASTATIN 20 MG TABLET 80 MG PO (10:00)
[2020-11-25] MEDS: BUSPIRONE 5 MG TABLET 10 MG PO (10:13)
--- NOTE | 2020-11-25 12:00 | PT-IP ANOTE ---
Attempted physical therapy twice this morning but pt not available. She was on the phone earlier and now getting Echo. Will check back again this afternoon.
--- NOTE | 2020-11-25 12:36 | P.PN_ITS ---
Subjective Subjective Interval history: 65-year-old female admitted to the hospital with an acute right pontine infarct. 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 She of weakness of the left lower extremity in addition to left facial droop. Overall she feels like she is making some progress. 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 Exam Vital Signs (past 8 hours): - 11/25/20 07:00 11/25/20 08:30 Temperature 97.6 F Pulse Rate 66 Respiratory Rate 18 Blood Pressure 147/63 H Pulse Oximetry 97 97 Oxygen Delivery Method Room Air Oxygen Flow Rate 0 Narrative Exam Narrative: Pleasant female resting comfortably Eyes Other: Extraocular muscles are intact Resp Other: Lungs are clear to auscultation Cardio Other: Cardiac exam: Regular rate and rhythm normal S1-S2 with a 2/6 systolic ejection GI Other: Abdomen soft nontender nondistended Skin Other: Extremities no edema Neuro Other: Speech is fluent No confusion Left facial droop persists Left upper extremity flaccid per hour Left lower extremity inability to dorsiflex or plantar flex the left foot left leg weak as well Objective Labs Result Diagrams: 11/24/20 00:38 11/24/20 00:38 [facility] Medical History Depression with anxiety Essential hypertension HLD (hyperlipidemia) Surgical History History of bunionectomy Hx of removal of thyroglossal duct cyst Hx of tonsillectomy Family History Mother Kidney failure Father Congestive heart failure CVA (cerebral vascular accident) Sister CVA (cerebral vascular accident) Diabetes mellitus DVT (deep venous thrombosis) Social History household members: none Smoking Status: Never smoker alcohol intake: never Assessment & Plan Assessment & Plan narrative: Assessment & Plan narrative: Impression 1. 65-ye ar-old female admitted to the hospital with an acute CVA -MRI Within the right tashi, there is abnormal diffusion-weighted signal, as on series 26, image 59. There is associated dark signal seen on the ADC map as well as mild developing T2 weighted signal through this region. No intracranial bleeds or mass effects. Alfaro-white matter interface is normal. Brainstem appears normal. Normal intravascular flow voids are present. No abnormal intracranial enhancement. Skull and face: Calvarial marrow signal is normal. Orbits appear normal. Sinuses: An apparent mucous retention cysts can be seen within the inferior right maxillary sinus. Sinuses and mastoids are otherwise clear. -continue Plavix and aspirin -start antihypertensive treatment -consider starting YOMAIRA-inhibitor tomorrow -given patient's history of palpitations, and acute likely embolic infarct, would recommend outpatient event monitor -patient will likely need post discharge rehabilitation, acute versus subacute -continue PT OT and speech -await echo results -likely will need acute vs. subacute rehab and discharge given her disability 2. Hypertension -will observe closely -initiate blood pressure medication today 3. Hyperlipidemia -continue high-dose statin 4. DVT prophylaxis -Lovenox 40 mg daily 5. Depression -CONTINUE FLUOXETINE Quality VTE Deep Vein Thrombosis/Pulmonary Embolism Present on Admission: No
[2020-11-25] MEDS: NYSTATIN POWDER 15GM 1 APPLIC TOP ×2 (12:56→20:17)
[2020-11-25] MEDS: lisinopriL 10 MG TABLET PO (12:56)
--- NOTE | 2020-11-25 13:52 | CM.DPC ---
DCP: continued: Spoke by phone with Durga/RADHA Vargasab/[facility] [place]. He discussed case with the physician team. All say that pt is an excellent stroke rehab candidate but concerns remain re the after rehab d/c disosition. He will call the pt for further discussion re this and has also left a message with pt's sister. Pt would like inpt rehab but remains open to snf. Checked in this morning with Mart/[facility]. She reports she did not get the fax until late yesterday as they had so many faxes coming through their line but she remained very agreeable to review and starting the [employer] Medicare snf auth process if appropriate. Please see the DCP assessment note of yesterday for more detail. P: DCP team to keep working on appropriate post hospital rehab setting that [facility]. Pt remains alert and oriented but very compromised physicially. Financial resources seem limited. DCP team will need to look more deeply at this.
--- NOTE | 2020-11-25 16:51 | PT.IPTN ---
Current Diagnoses Cerebral infarction, unspecified (11/23/20) Physical Therapy Treatment Note M2 PT-IP Current Condition Start: 11/24/20 12:29 Freq: NEEDED Status: Active Protocol: Document 11/24/20 10:50 AB (Rec: 11/24/20 12:42 AB [id number]) Physical Therapy Current Condition Current Condition Evaluation Date 11/24/20 Treatment Diagnosis CVA L sided weakness; difficulty in walking Onset Date 11/23/20 Precautions Other Precautions falls M3 PT-IP Subjective Start: 11/24/20 12:29 Freq: NEEDED Status: Active Protocol: Document 11/25/20 16:51 DLM (Rec: 11/25/20 17:41 DLM [id number]) Subjective Physical Therapy Visit Type Type Treatment Note Visit Start Time 15:50 Visit Stop Time 16:51 Total Visit Minutes 61 Number of PRODUCT SAFETY ASSOCIATE Visits 0 Physical Therapy Visit Comments Patient Comments She is very worried about her left side improving. She reports it is hard to feel her left foot. She has been trying to move her left arm all day. Patient Goals Get better M4 PT-IP Mobility and Gait Start: 11/24/20 12:29 Freq: NEEDED Status: Active Protocol: Document 11/25/20 16:51 DLM (Rec: 11/25/20 17:41 DLM [id number]) PT-Bed Mobility Assessment Scooting Scooting to Edge of Bed Contact Guard Assistance, Minimal Assistance,Moderate Assistance PT-Transfer Assessment Sit to and From Stand Sit to and from Stand Minimal Assistance,Moderate Assistance,Use of Upper Extremities Equipment Transfer Assistive Device Gait Belt,Front Wheeled Walker Transfers Transfer Destination Bed,Chair Transfer Technique Stand Step Pivot Transfer Ability Level of Assist Moderate Assistance,Use of Upper Extremities Comments Mobility Comments Two types of transfers attempted this visit: 1) Standing transfer with use of FWW, she needs assist to keep left hand on FWW and to manage left knee buckling, 2) Squat pivot transfer bed to/from bedside commode. Pt sitting up in recliner this visit and wants to stay up. Gait Assessment Gait Gait Assistance Required: Moderate Assistance Assistive Devices Assistive Device Gait Belt,Front Wheeled Walker Factors Limiting Gait Function Factors Limiting Gait Function Decreased Activity Tolerance, Decreased Strength,Poor Balance Comments Gait Comments Attempted stepping in place with FWW, she needs assistance to keep left hand on FWW and a lot of cuing to prevent left knee buckling with weight bearing. She can make small steps with left LE but has poor motor control. PT-Balance Assessment Sitting Balance and Reactions Static Sitting Balance Ability Fair Dynamic Sitting Balance Ability Fair Standing Balance and Reactions Static Standing Balance Ability Fair Dynamic Standing Balance Ability Fair Device Used FWW Comments Other Balance Tests/Deviations/Treatment Static standing, weight : shifting and education for positional awareness M5 PT-IP Objective Assessments Start: 11/24/20 12:29 Freq: NEEDED Status: Active Protocol: Document 11/24/20 10:50 AB (Rec: 11/24/20 12:42 AB [id number]) Orientation Orientation/Cognition Level of Alertness Alert Orientation Name,Place,Situation Safety Awareness Decreased Safety Awareness Gross Range of Motion Lower Extremity ROM Assessment Within Functional Limits Strength Lower Extremity Strength Assessment Left Impaired Hip 3+/5 Knee 3/5 Muscle Tone Muscle Tone WNL Yes M6 PT-IP Treatment Start: 11/24/20 12:29 Freq: NEEDED Status: Active Protocol: Document 11/25/20 16:51 DLM (Rec: 11/25/20 17:41 [facility] [id number]) Physical Therapy Treatment Exercises Exercises Ankle Pumps,Seated Knee Flexion/Extension,Shoulder Flexion,Elbow Flexion/ Extension,Wrist ROM,Hand ROM Education Education Provided Safety Other Treatments Other Treatment Performed seated hip flexion, assisted pt in moving left UE and LE for exercises Strength: left hip flex 2+/5, knee ext 3/5, knee flex 2+/5, DF 1/5, shoulder flexion 0/5 with compensatory shrugging, elbow flex 2+/5, wrist 0/5, music box mechanic 0/5 M7 PT-IP Assessment and Plan Start: 11/24/20 12:29 Freq: NEEDED Status: Active Protocol: Document 11/25/20 16:51 DLM (Rec: 11/25/20 17:41 [facility] [id number]) PT Summary Assessment and Plan Summary Impairments Pain,ROM,Strength,Balance, Coordination,Sensation,Tone, Cognition,Bed Mobility, Transfers,Gait,Activity Tolerance Progress Towards Goals Slow Progress - Other Assessment Summary Lesly is anxious today about her recovery. She shows very good participation in therapy. She is easily distracted but can be brought back to tasks easily. She continues to have significant weakness left UE and LE. She has a mild inattention to left LE more than UE. Her proprioception left UE and LE is impaired. She shows improved ability to manage her left knee buckling in standing. She can verbalize the need to keep her weight on the right side in standing but has difficulty maintaining that position. She likes to stay up in the chair today. Recommend nursing continue to use two person assist for transfers since pt is impulsive and at high risk for falls. She will need extensive rehab to assist in her recovery. Goals Bed Mobility Goal Standby Assistance Transfer Goal Minimal Assistance,Front Wheeled Walker Gait Goal Minimal Assistance,Front Wheel Walker Gait Distance 50 Other Goals improve transfers and ambulation using FWW 100 ft CGA Days to Meet Goals 10 Frequency of Treatment Frequency Of Treatment Twice a Day Treatment Plan Physical Therapy Treatment Plan Bed Mobility Training,Transfer Training,Gait Training, Therapeutic Exercise,Balance Retraining,Discharge Planning, Neuromuscular Re-ed, Coordination Retraining Precautions Other Precautions Falls Recommendations To Nursing Amount of Assist Needed 2 Person Assist Discharge Recommendations PT Discharge Recommendations SNF vs Acute Rehab Transportation Needs at Discharge Wheelchair/Cabulance
[2020-11-25] MEDS: hydrOXYzine pamoate 25 MG CAPSULE 75 MG PO (20:17)
[2020-11-25] MEDS: TEMAZEPAM 15 MG CAPSULE 30 MG PO (20:17)
[2020-11-26] VITALS (10 sets, daily range): BP systolic 126–149; BP diastolic 52–73; PULSE 60–72; RESP 16–20; TEMP 35.9–36.4; O2SAT 96–98
[2020-11-26] MEDS: ATORVASTATIN 20 MG TABLET 80 MG PO (08:49)
[2020-11-26] MEDS: BUSPIRONE 5 MG TABLET 10 MG PO (08:49)
[2020-11-26] MEDS: CLOPIDOGREL 75 MG TABLET PO (08:49)
[2020-11-26] MEDS: lisinopriL 10 MG TABLET PO (08:49)
[2020-11-26] MEDS: ENOXAPARIN 40 MG/0.4 ML SYRINGE SUBCUT (08:49)
[2020-11-26] MEDS: FLUoxetine 20 MG CAPSULE 60 MG PO (08:49)
[2020-11-26] MEDS: ASPIRIN EC 81 MG TABLET PO (08:49)
[2020-11-26] MEDS: SODIUM CHLORIDE 0.9% FLUSH 10 ML IV ×2 (08:50→20:26)
[2020-11-26] MEDS: NYSTATIN POWDER 15GM 1 APPLIC TOP ×2 (08:50→20:25)
[2020-11-26] MEDS: polyethylene glycoL 3350 17 GM POWD.PACK PO (09:07)
[2020-11-26] MEDS: DOCUSATE 100 MG CAPSULE PO (09:07)
--- NOTE | 2020-11-26 10:29 | PT.IPTN ---
Current Diagnoses Cerebral infarction, unspecified (11/23/20) Physical Therapy Treatment Note M2 PT-IP Current Condition Start: 11/24/20 12:29 Freq: NEEDED Status: Active Protocol: Document 11/24/20 10:50 AB (Rec: 11/24/20 12:42 AB [id number]) Physical Therapy Current Condition Current Condition Evaluation Date 11/24/20 Treatment Diagnosis CVA L sided weakness; difficulty in walking Onset Date 11/23/20 Precautions Other Precautions falls M3 PT-IP Subjective Start: 11/24/20 12:29 Freq: NEEDED Status: Active Protocol: Document 11/26/20 10:29 DLM (Rec: 11/26/20 13:20 DLM [id number]) Subjective Physical Therapy Visit Type Type Treatment Note Visit Start Time 09:45 Visit Stop Time 10:29 Total Visit Minutes 44 Number of COATER SMOKING PIPE Visits 0 Physical Therapy Visit Comments Patient Comments She is not sleeping well at night. She is having episodes of anxiety and restlessness. Getting up to the chair helps when she is restless. Patient Goals Get better Therapy Pain Assessment Pain When Pain Assessed During Mobility Pain Present Pain Present Denied Pain M4 PT-IP Mobility and Gait Start: 11/24/20 12:29 Freq: NEEDED Status: Active Protocol: Document 11/26/20 10:29 DLM (Rec: 11/26/20 13:20 DLM [id number]) PT-Bed Mobility Assessment Supine to Sit Supine to Sit Minimal Assistance,Moderate Assistance,Bedrails Scooting Scooting to Edge of Bed Minimal Assistance PT-Transfer Assessment Sit to and From Stand Sit to and from Stand Moderate Assistance,Use of Upper Extremities Equipment Transfer Assistive Device Gait Belt,Front Wheeled Walker Transfers Transfer Destination Chair,Bedside Commode Transfer Technique Stand Step Pivot Transfer Ability Level of Assist Moderate Assistance,Use of Upper Extremities Comments Mobility Comments Pt used bedside commode and second person needed to assist with yumiko-care. She has intermittent buckling left knee with attempting to weight bear. She needs assistance to keep left hand on FWW. Gait Assessment Gait Gait Assistance Required: Moderate Assistance Assistive Devices Assistive Device Gait Belt,Front Wheeled Walker Factors Limiting Gait Function Factors Limiting Gait Function Decreased Activity Tolerance, Decreased Strength,Poor Balance Comments Gait Comments Stepping in place activity with FWW, jessica wrap use on left knee to increase proprioception and facilitate knee control with weight bearing, noted increase in extensor tone in left LE during some functional movements. PT-Balance Assessment Sitting Balance and Reactions Static Sitting Balance Ability Fair Dynamic Sitting Balance Ability Fair Standing Balance and Reactions Static Standing Balance Ability Fair Dynamic Standing Balance Ability Poor Device Used FWW Comments Other Balance Tests/Deviations/Treatment Static standing, weight : shifting and education for positional awareness M5 PT-IP Objective Assessments Start: 11/24/20 12:29 Freq: NEEDED Status: Active Protocol: Document 11/24/20 10:50 AB (Rec: 11/24/20 12:42 AB [id number]) Orientation Orientation/Cognition Level of Alertness Alert Orientation Name,Place,Situation Safety Awareness Decreased Safety Awareness Gross Range of Motion Lower Extremity ROM Assessment Within Functional Limits Strength Lower Extremity Strength Assessment Left Impaired Hip 3+/5 Knee 3/5 Muscle Tone Muscle Tone WNL Yes M6 PT-IP Treatment Start: 11/24/20 12:29 Freq: NEEDED Status: Active Protocol: Document 11/26/20 10:29 DLM (Rec: 11/26/20 13:20 DLM [id number]) Physical Therapy Treatment Exercises Exercises Ankle Pumps,Seated Knee Flexion/Extension Education Education Provided Safety Other Treatments Other Treatment Performed *seated hip flexion, assisted pt in all left LE exercises to complete movements M7 PT-IP Assessment and Plan Start: 11/24/20 12:29 Freq: NEEDED Status: Active Protocol: Document 11/26/20 10:29 DLM (Rec: 11/26/20 13:20 DLM [id number]) PT Summary Assessment and Plan Summary Impairments Pain,ROM,Strength,Balance, Coordination,Sensation,Tone, Cognition,Bed Mobility, Transfers,Gait,Activity Tolerance Progress Towards Goals Slow Progress - Other Assessment Summary Lesly is alert and resting in bed. She has episodes of anxiety and needs brief rests breaks to manage this. She shows great effort with all therapy. She continues to have significant left sided weakness. Noted mild increase in extensor tone in left LE during sit-stand and some standing tasks. She is impulsive and easily distracted so her fall risk continues to be high. Recommend nursing use 2 person assist for all mobility due to her sendy fall risk. She continues to need rehab to assist in her recovery. Goals Bed Mobility Goal Standby Assistance Transfer Goal Minimal Assistance,Front Wheeled Walker Gait Goal Minimal Assistance,Front Wheel Walker Gait Distance 50 Other Goals improve transfers and ambulation using FWW 100 ft CGA Days to Meet Goals 10 Frequency of Treatment Frequency Of Treatment Twice a Day Treatment Plan Physical Therapy Treatment Plan Bed Mobility Training,Transfer Training,Gait Training, Therapeutic Exercise,Balance Retraining,Discharge Planning, Neuromuscular Re-ed, Coordination Retraining Other Recommendations and Next Treatment trial other assistive devices Focus for standing/transfers due to on-going left hand weakness that limits her ability to hold the FWW Precautions Other Precautions Falls Recommendations To Nursing Amount of Assist Needed 2 Person Assist Discharge Recommendations PT Discharge Recommendations SNF vs Acute Rehab Transportation Needs at Discharge Wheelchair/Cabulance
--- NOTE | 2020-11-26 11:34 | OT.IP.TRT ---
Current Diagnoses Cerebral infarction, unspecified (11/23/20) Occupational Therapy Treatment Note M2 OT-IP Current Condition Start: 11/24/20 11:35 Freq: Status: Active Protocol: Document 11/24/20 11:36 CGR (Rec: 11/24/20 11:53 CGR [id number]) Occupational Therapy Current Condition Current Condition Evaluation Date 11/24/20 Treatment Diagnosis L sided weakness Diagnosis Onset Date 11/23/20 M3 OT- IP Subjective and Pain Start: 11/24/20 11:35 Freq: Status: Active Protocol: Document 11/26/20 11:34 CGR (Rec: 11/26/20 11:41 CGR [id number]) OT- Subjective Occupational Therapy Visit Type Type Progress Note Visit Start Time 11:10 Visit Stop Time 11:34 Total Visit Minutes 24 Notes Checked on pt twice prior to OT session. Pt worked with ST and P.T. in am. OT Pain Assessment Pain When Pain Assessed At Rest Pain Present Pain Present Denied Pain M4 OT- IP ADL's Start: 11/24/20 11:35 Freq: Status: Active Protocol: Document 11/24/20 11:36 CGR (Rec: 11/24/20 11:53 CGR [id number]) OT [id number] Comments OT Self-Feeding Comments Pt states that she had trouble eating d/t the shaking in her hand. OT ADL-Grooming General Evaluation Grooming Ability Standby Assistance Comments OT Grooming Comments washed hands seated in w/c OT ADL-Oral Care Comments Oral Care Comments not performed OT ADL-Dressing General Eval Lower Body Dressing Ability Minimal Assistance,Moderate Assistance Areas Needing Assistance Socks Comments OT Dressing Comments Performed to the R foot only. Needed assist to get sock onto foot then pt was able to pull it into place OT ADL-Toileting General Evaluation Toileting Ability Minimal Assistance Comments OT Toileting Comments Pt was able to urinate seated on BSC and needed verbal cues for partial stand to perform front pericare but was able to perform without physical assist. OT ADL-Bathing Comments OT Bathing Comments not performed M5 OT- IP IADL's Start: 11/24/20 11:35 Freq: Status: Active Protocol: Document 11/24/20 11:36 CGR (Rec: 11/24/20 11:53 CGR [id number]) OT-Instrumental Activities of Daily Living Deficits IADL Deficits Identified Deficits Home Safety Awareness Awareness of Need for Assistance at Home Decreased Awareness Ability to Problem Solve Emergency Unable to Problem Solve Situations Medication Management Medication Management Comments Concern for pt's ability to perform Money Management Money Management Comments Concern for pt's ability to perform Meal Preparation Meal Preparation Comments Concern for pt's ability to perform Deputy Controller Deputy Controller Comments Concern for pt's ability to perform Driving Driving Concerns Identified Regarding Safety Driving Comments 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 M6 OT- IP Functional Cognition Start: 11/24/20 11:35 Freq: Status: Active Protocol: Document 11/26/20 11:34 CGR (Rec: 11/26/20 11:41 CGR [id number]) Cognitive Factors Limiting Selfcare Function Cognitive Ability Level of Alertness Alert Patient Orientation Name,Age,Birthday,Month,Date, Year,Day of Week,Place, Situation Attention Span Ability Capable of Focused Attention, Unable to Sustain Attention Ability to Follow Commands Able to Follow One Step Commands with Increased Time, Able to Follow One Step Commands with Repetition Cognitive Comments Cognitive Assessment Comments Pt is easily flustered and needs extra time for comprehension but is very receptive to therex and education. M7 OT- IP Mobility and Balance Start: 11/24/20 11:35 Freq: Status: Active Protocol: Document 11/26/20 11:34 CGR (Rec: 11/26/20 11:41 CGR [id number]) OT- Balance Assessment Sitting Balance and Reactions Static Sitting Balance Ability Fair Dynamic Sitting Balance Ability Poor M8 OT- IP Objective Assessments Start: 11/24/20 11:35 Freq: Status: Active Protocol: Document 11/24/20 11:36 CGR (Rec: 11/24/20 11:53 CGR [id number]) OT Gross Range of Motion Upper Extremity Range of Motion Assessment Left Impaired ROM Impairments AROM on LUE impaired d/t poor control and strength OT Strength Upper Extremity Strength Assessment Left Impaired Comments Strength Comments grossly 3- to 3+ to the LUE OT- Coordination Assessment Upper Extremity Finger to Nose Test Left UE Impaired Finger Tapping Test Left UE Impaired OT-Muscle Tone Assessment Muscle Tone WNL Yes OT Sensation Assessment Edema Edema Absent M9 OT- IP Assessment and Plan Start: 11/24/20 11:35 Freq: Status: Active Protocol: Document 11/26/20 11:34 CGR (Rec: 11/26/20 11:41 CGR [id number]) OT Summary Assessment and Plan Potential Rehabilitation Potential Good Analytic Complexity at Evaluation High Summary OT Impairments Range of Motion,Strength, Balance,Coordination, Functional Cognition, Functional Mobility,Self- Feeding,Grooming,Dressing, Toileting,Bathing,Toilet Transfers,Shower Transfers, Activity Tolerance Progress Towards Goals Slow Progress due to Activity Tolerance,Slow Progress due to Cognition Assessment Summary Pt presents as a high complexity evaluation s/p admit for L sided weakness. Pt now presents with decline in her LUE strength. Unable to get even trace muscle movement throguhout the arm. Pt does demonstrates significant motivation as seen with her using compensatory stratigies to attempt any and all movmenets requested in the L arm and hand. At this time 0/5 throughout. Pt was educated on tactile and therex to perform and performed WB through the LUE with max assist. Pt's proprioception and sensation appear to be normal in the LUE. Pt left sitting up in chair per pt request. Pt would benefit from acute rehab upon discharge given now CVA and pt's motivation to participate in therapy. Goals Self-Feeding Goal Independent Grooming Goal Independent Dressing Goal Independent Toileting Goal Independent Bathing Goal Independent Toilet Transfer Goal Independent Shower Transfer Goal Independent Days to Meet Goals 30 Frequency of Treatment Frequency Of Treatment Once a Day Treatment Plan OT Treatment Plan ADL Training,Functional Cognition Training,Functional Mobility,Neuromuscular Re- education,Therapeutic Exercises,Patient/Family Education,Discharge Planning Other Treatment Recommendations and Next L UE therex, ADLs seated vs Treatment Focus standing. Discharge Recommendations OT Discharge Recommendations Acute Rehab Transportation Needs at Discharge Wheelchair/Cabulance
--- NOTE | 2020-11-26 12:29 | CM.DPNOTE ---
Addendum entered by Pinky Hyman 11/26/20 12:34: I called [facility] to verify fax and he said he uploaded information on this pt. and they are working on auth. He said everything looks good. Pinky Sharpe CM Asst. Original Note: Faxed MRI PT/OT notes to [facility] at [facility] Inpt. Fax confirmation received. Rehab requested by Diane. Pinky Hyman CM Asst.
--- NOTE | 2020-11-26 14:42 | PM.PN.1 ---
Subjective Subjective Date Patient Seen: 11/26/20 Time Patient Seen: 14:42 Interval history: 65-year-old female admitted to the hospital with an acute right pontine infarct. 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 She has weakness of the left lower extremity in addition to left facial droop which are improving. Overall she feels like she is making some progress. Hoping for transfer to acute rehab or possibly SNF. Having a difficult time sleeping with anxiety, will add additional benzo dose at home as needed, occasionally she states she has taken up to 3 doses at home. Exam Vital Signs (past 8 hours): - 11/26/20 08:00 11/26/20 08:57 11/26/20 09:08 Temperature 97.0 F L Pulse Rate 60 Respiratory Rate 18 Blood Pressure 127/70 Pulse Oximetry 97 97 97 11/26/20 12:00 Temperature 97.6 F Pulse Rate 62 Respiratory Rate 17 Blood Pressure 126/61 Pulse Oximetry 98 Oxygen Delivery Method Room Air Oxygen Flow Rate 0 Narrative Exam Narrative: Gen: Alert, oriented, well-nourished 65 y.o. female, cushionoid appeariing HEENT: normocephalic, atraumatic, conjunctiva clear, sclera non-icteric, oral mucosa pink and moist Neck: supple, full ROM, no JVD, trachea is midline Resp: Lungs CTA, non-labored breathing CV: RRR, no murmur or rubs Abd: soft, non-tender, normoactive BTs Skin: no lesions or rashes Neuro: Alert and oriented . LUE paralysis, LLE weak, L facial droop. No reported deficits in sensation to light touch. Speech mildly slurred with facial droop but no difficulties with word finding. Extremities: moves all 4 extremities, is ambulatory, negative Bebeto?s sign, trace bilateral edema Psyche: Mildly anxious affect Objective Labs Result Diagrams: 11/24/20 00:38 11/24/20 00:38 [facility] Medical History Depression with anxiety Essential hypertension HLD (hyperlipidemia) Surgical History History of bunionectomy Hx of removal of thyroglossal duct cyst Hx of tonsillectomy Family History Mother Kidney failure Father Congestive heart failure CVA (cerebral vascular accident) Sister CVA (cerebral vascular accident) Diabetes mellitus DVT (deep venous thrombosis) Social History household members: none Smoking Status: Never smoker alcohol intake: never Assessment & Plan Assessment & Plan narrative: 65-year-old female admitted to the hospital with an acute CVA 1. CVA, acute, present on admission. -MRI with a R pontine CVA. -continue Plavix and aspirin -continue antihypertensive treatment initiated here with lisinopril 10 mg. BP improved today. -given patient's history of palpitations, and possibly embolic infarct, would recommend outpatient event monitor -plan for transfer to acute rehab or SNF. Trying for acute rehab. -continue PT OT and speech -echocardiogram unremarkable. 2. Hypertension -continue lisinopril 10 mg, started here. 3. Hyperlipidemia -continue high-dose statin 4. DVT prophylaxis -Lovenox 40 mg daily 5. Depression and anxiety -CONTINUE FLUOXETINE -continue home benzo, added additional dose at night prn for sleep. Dispo: probable discharge tomorrow to Acute rehab for PT/OT after CVA or SNF. Code: Full Quality VTE Deep Vein Thrombosis/Pulmonary Embolism Present on Admission: No
--- NOTE | 2020-11-26 16:01 | CM.DPC ---
DCP/continued: Reviewed chart. Current recommendation is Acute Rehabilitation. NIGHT COORDINATOR placed call to [facility] and spoke with Mary in admit. He reports that they will submit to [facility] for authorization. In the meantime, patient aware that in order to go to Acute Rehabilitation she needs to have good d/c plan. Patient reports that she believes her sister/Roseline can come stay with her for awhile. NIGHT COORDINATOR left message with sister requesting return phone call. Sister's cell# is [phone]. In addition, patient reports that her neighbor can assist if needed. Above information provided to [facility] and they too will try to reach sister. If d/c plan can be secured from Acute Rehabilitation they will accept. Second option is [facility] they called today requesting update. Notified Helene that if Acute Rehabilitation unable to get authorization or secure safe d/c plan with sister and or neighbor SNF will be needed. Plan: Pending. MATTHEW Bullard
--- NOTE | 2020-11-26 16:49 | ST.IPTN ---
Visit Care Team Role Provider Type ANGEL Lewis Admit Provider Physician Attending Provider Referring Provider Address: [address] [place] [address], [id number] DRAWER LINER Treatment Note DRAWER LINER Clinical Instructor Line Start: 11/26/20 12:18 Freq: Status: Active Protocol: Document 11/26/20 16:33 HEMA (Rec: 11/26/20 16:33 HEMA [id number]) Clinical Instructor Signature Clinical Instructor Clinical Instructor Yes DRAWER LINER Treatment Note Start: 11/26/20 09:32 Freq: Status: Active Protocol: Document 11/26/20 09:33 EB (Rec: 11/26/20 10:21 EB [id number]) Speech Pathology Treatment Note Session Time Visit Start Time 08:55 Visit Stop Time 09:25 Total Visit Minutes 30 Setting Treatment Setting Acute Care Visit Type Note Type Treatment Note Next Note Type Next Note Type Treatment Note General Information General Information Pt is a 65 y.o. female direct admit from [facility] for completion of a TIA workup. Patient has a history of hypertension, hyperlipidemia, depression and anxiety. Upon initial DRAWER LINER evaluation, pt denied difficulty with eating but due to mild difficulty with mastication, is on a dysphagia mechanical and thin liquid diet. She endorses having a ?racing heart? which has been going on for 6 months , she denies shortness of breath or chest pain, recently had a colonoscopy and felt that ever since the colonoscopy things have been ? wrong? in her abdomen. She states she has a history of chronic pain, she has been itching in her arms of which primary providers have seen her for and do not what know what the reason is. She states that she has easy bruising and left hip are arthritis and goes to a chiropractor. 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 Brain MRI shows subacute right tashi infarct. On 11/24/20 pt scored a 20/30 on SLUMS assessment, indicating cognitive impairment. Discharge plans are currently being coordinated to transfer pt to either a inpatient rehab facility or SNF. Subjective Identification Type Name Others Present Student Observations/Patient Presentation Pt was alert, sitting upright in bed while eating breakfast upon DRAWER LINER and DRAWER LINER student arrival. Pt reported that she was satisfied with current diet and is not having difficulty swallowing at this time. Pt stated that she is noticing some food pocketing in her left cheek and that she has been using a napkin to scoop out the food. While drinking Miralax, the pt cleared her throat and stated that her rate of swallow has been slower then normal the last several months and that chewing on her right side has been difficult due to a tooth abscess. Pt stated that she has been noticing some change with articulation and mild WFD for awhile now. She states that when she experiences WFD, she talks around the word or pauses and eventually finds the word. Treatment conducted and note written by student DRAWER LINER Noelle Small. Chief Complaint(s) Speech,Swallowing,Cognitive Patient Knowledge/Awareness of DRAWER LINER Role Good in Treatment Patient/Caregiver Compliance with Home Good Exercise Program Objective Short Term Goals Pt will follow safe swallowing precautions with minimal verbal reminders to reduce risk of aspiration. Pt will participate in education re: dysarthria, dysphagia, and memory strategies. Long-Term Goals Pt will tolerate least restrictive diet without demonstrating overt s/sx of aspiration. Pt will follow safe swallowing precautions independently to reduce risk of aspiration. Treatment Activities Provided education and HEP regarding oral motor exercises targeting left sided weakness in order to increase lip, tongue, and cheek strength and coordination to improve mastication and articulation. Primary exercises recommended : exaggerated movements while saying EEEE-OOO, DDK exercises, and effortful swallow. Also provided education regarding WFD and strategies to improve word recall such as describing, writing, or drawing the target word. Pt demonstrated exercises presented and expressed verbal understanding of HEP. Assessment Patient Response to Treatment Good Rehab Potential Good Impairments Identified Articulation,Cognitive- Linguistic Skills,Dysarthria, Expressive Language Progress Towards Goals Good Progress Assessment of Overall Progress Improving Assessment of Improvement Pt stated that she is satisfied with the texture of food presented and that she has not experienced any new difficulty with drinking/ eating. This along with DRAWER LINER observations while pt drank water suggests that the current diet continues to be appropriate. Pt was intelligible to DRAWER LINER and DRAWER LINER student with mild voicing difficulty noted with sounds such as /z/. Continued speech, language, and swallowing evaluation/treatment is recommended to monitor pt's progress. It would be beneficial for the pt to participate in a language assessment to further assess reported WFD and guide POC. Pt demonstrated understanding of progress being made and the recommended HEP. Pt stated to DRAWER LINER that she is keeping all therapy materials given to her and that she will complete the exercises. Reviewed with Patient Progress Being Made,Home Exercise Program Patient/Caregiver Understanding Good Plan Therapeutic Contents Client Education,Cognitive- Linguistic Training,Expressive Language Training,Home Exercise Program,Oral Motor Training,Swallowing/Feeding Provided Patient/Caregiver Instruction Home Exercise Program, Questions/Concerns Therapy Recommendations Continue with Current Program
--- NOTE | 2020-11-26 16:55 | PT.IPTN ---
Current Diagnoses Cerebral infarction, unspecified (11/23/20) Physical Therapy Treatment Note M2 PT-IP Current Condition Start: 11/24/20 12:29 Freq: NEEDED Status: Active Protocol: Document 11/24/20 10:50 AB (Rec: 11/24/20 12:42 AB [id number]) Physical Therapy Current Condition Current Condition Evaluation Date 11/24/20 Treatment Diagnosis CVA L sided weakness; difficulty in walking Onset Date 11/23/20 Precautions Other Precautions falls M3 PT-IP Subjective Start: 11/24/20 12:29 Freq: NEEDED Status: Active Protocol: Document 11/26/20 16:55 DLM (Rec: 11/26/20 17:26 DLM [id number]) Subjective Physical Therapy Visit Type Type Treatment Note Visit Start Time 16:10 Visit Stop Time 16:55 Total Visit Minutes 45 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 She is talking to friends and family to determine who can help her after discharge from rehab. Patient Goals get better Therapy Pain Assessment Pain When Pain Assessed During Mobility Pain Present Pain Present Denied Pain M4 PT-IP Mobility and Gait Start: 11/24/20 12:29 Freq: NEEDED Status: Active Protocol: Document 11/26/20 16:55 DLM (Rec: 11/26/20 17:26 DLM [id number]) PT-Bed Mobility Assessment Scooting Scooting to Edge of Bed Minimal Assistance PT-Transfer Assessment Sit to and From Stand Sit to and from Stand Moderate Assistance,Use of Upper Extremities Equipment Transfer Assistive Device Gait Belt,Front Wheeled Walker Transfers Transfer Destination Chair,Bedside Commode Transfer Technique Stand Step Pivot Transfer Ability Level of Assist Moderate Assistance,Use of Upper Extremities Comments Mobility Comments Two types of transfers attempted this visit: 1) Standing transfer with use of FWW, she needs assist to keep left hand on FWW and to manage left knee buckling, 2) Squat pivot transfer bed to/from bedside commode. Pt sitting up in recliner this visit and wants to stay up. [ End ] PT-Balance Assessment Sitting Balance and Reactions Static Sitting Balance Ability Fair Dynamic Sitting Balance Ability Fair Standing Balance and Reactions Static Standing Balance Ability Fair Dynamic Standing Balance Ability Poor Device Used FWW Comments Other Balance Tests/Deviations/Treatment Static standing, weight : shifting and education for positional awareness M5 PT-IP Objective Assessments Start: 11/24/20 12:29 Freq: NEEDED Status: Active Protocol: Document 11/24/20 10:50 AB (Rec: 11/24/20 12:42 AB [id number]) Orientation Orientation/Cognition Level of Alertness Alert Orientation Name,Place,Situation Safety Awareness Decreased Safety Awareness Gross Range of Motion Lower Extremity ROM Assessment Within Functional Limits Strength Lower Extremity Strength Assessment Left Impaired Hip 3+/5 Knee 3/5 Muscle Tone Muscle Tone WNL Yes M6 PT-IP Treatment Start: 11/24/20 12:29 Freq: NEEDED Status: Active Protocol: Document 11/26/20 16:55 DLM (Rec: 11/26/20 17:26 DLM [id number]) Physical Therapy Treatment Exercises Exercises Ankle Pumps,Seated Knee Flexion/Extension Education Education Provided Safety Other Treatments Other Treatment Performed Wheelchair mobility training in lowry. Pt able to propel with right UE and LE but could not use left LE. She needs min assist to propel wheelchair on level surface and she is unable to move around obstacles. Coordinated with nursing to get pt up to bedside commode for BM and urinate. M7 PT-IP Assessment and Plan Start: 11/24/20 12:29 Freq: NEEDED Status: Active Protocol: Document 11/26/20 16:55 DLM (Rec: 11/26/20 17:26 DLM [id number]) PT Summary Assessment and Plan Summary Impairments Pain,ROM,Strength,Balance, Coordination,Sensation,Tone, Cognition,Bed Mobility, Transfers,Gait,Activity Tolerance Progress Towards Goals Slow Progress - Other Assessment Summary Lesly is alert and up in recliner. She reports feeling a little anxious this afternoon. Wheelchair mobility training performed to get pt out of room and into lowry. 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 Left knee intermittent buckling with weight bearing limits functional gait. Noted fatigue at the end of this visit. She continues to report she is not sleeping well at night. Continue to recommend in-pt rehab at discharge. Goals Bed Mobility Goal Standby Assistance Transfer Goal Minimal Assistance,Front Wheeled Walker Gait Goal Minimal Assistance,Front Wheel Walker Gait Distance 10 Other Goals propel wheelchair with SBA x 100 feet Days to Meet Goals 8 Frequency of Treatment Frequency Of Treatment Twice a Day Treatment Plan Physical Therapy Treatment Plan Bed Mobility Training,Transfer Training,Gait Training, Therapeutic Exercise,Balance Retraining,Discharge Planning, Neuromuscular Re-ed, Coordination Retraining Other Recommendations and Next Treatment trial other assistive devices Focus for standing/transfers due to on-going left hand weakness that limits her ability to hold the FWW Recommendations To Nursing Amount of Assist Needed 2 Person Assist Discharge Recommendations PT Discharge Recommendations SNF vs Acute Rehab Transportation Needs at Discharge Wheelchair/Cabulance
[2020-11-26] MEDS: TEMAZEPAM 15 MG CAPSULE 30 MG PO (20:25)
[2020-11-26] MEDS: hydrOXYzine pamoate 25 MG CAPSULE 75 MG PO (20:25)
[2020-11-26] MEDS: ACETAMINOPHEN 325 MG TABLET 650 MG PO (23:33)
--- NOTE | 2020-11-27 02:05 | PC.NURSE ---
Patient is alert and oriented with anxiety. NIH = 8 as demonstrated by facial droop, left arm flaccid and left leg weakness. Breath sounds CTA with RA sat of 97%. HRR. Denied nausea. BT present and abdomen is soft. Denied dysuria, frequency or urgency with urination. Is able to move self in bed. Up to chair/BSC with walker and 2 assists but has poor balance due to LE weakness. Did complain of 1/10 left upper arm pain and was medicated with Tylenol and is currently asleep. Fall risk score is high and bed alarm is activated.
[2020-11-27 04:00] VITALS: BP 131/57; PULSE 61; RESP 17; TEMP 36.5; O2SAT 97
[2020-11-27 07:00] VITALS: O2SAT 98
[2020-11-27 08:00] VITALS: BP 133/64; PULSE 75; RESP 17; TEMP 36.8; O2SAT 98
[2020-11-27] MEDS: ATORVASTATIN 20 MG TABLET 80 MG PO (09:04)
[2020-11-27] MEDS: BUSPIRONE 5 MG TABLET 10 MG PO (09:04)
[2020-11-27] MEDS: lisinopriL 10 MG TABLET PO (09:04)
[2020-11-27] MEDS: ASPIRIN EC 81 MG TABLET PO (09:04)
[2020-11-27] MEDS: ENOXAPARIN 40 MG/0.4 ML SYRINGE SUBCUT (09:04)
[2020-11-27] MEDS: DOCUSATE 100 MG CAPSULE PO (09:04)
[2020-11-27] MEDS: FLUoxetine 20 MG CAPSULE 60 MG PO (09:04)
[2020-11-27] MEDS: NYSTATIN POWDER 15GM 1 APPLIC TOP (09:05)
[2020-11-27] MEDS: CLOPIDOGREL 75 MG TABLET PO (09:05)
[2020-11-27] MEDS: SODIUM CHLORIDE 0.9% FLUSH 10 ML IV (09:05)
[2020-11-27] MEDS: polyethylene glycoL 3350 17 GM POWD.PACK PO (09:06)
[2020-11-27] MEDS: ACETAMINOPHEN 325 MG TABLET 650 MG PO (09:14)
--- NOTE | 2020-11-27 09:38 | CM.DPNOTE ---
Faxed med list to [facility]. Inpt. Rehab and received fax confirm (per Diane). Pinky Hyman CM Asst.
--- NOTE | 2020-11-27 09:39 | CM.DPNOTE ---
Addendum entered by Pinky Hyman 11/27/20 13:06: Update: Angelique called at 1304 to let us know their transport person could be here from [phone]. Pinky Hyman CM Asst. Original Note: Called [facility] spoke to Angelique for a cabulance wc and she said someone could be here between 1330 and 1345. I said this was okay. Relayed to Diane. STEVEN Tatumt.
[2020-11-27 09:45] VITALS: PULSE 73; O2SAT 100
[2020-11-27 09:50] LABS: COVID19 -Nasal RAPID Negative (Negative)
--- NOTE | 2020-11-27 10:17 | OT.IP.TRT ---
Current Diagnoses Cerebral infarction, unspecified (11/23/20) Occupational Therapy Treatment Note M2 OT-IP Current Condition Start: 11/24/20 11:35 Freq: Status: Active Protocol: Document 11/24/20 11:36 CGR (Rec: 11/24/20 11:53 CGR [id number]) Occupational Therapy Current Condition Current Condition Evaluation Date 11/24/20 Treatment Diagnosis L sided weakness Diagnosis Onset Date 11/23/20 M3 OT- IP Subjective and Pain Start: 11/24/20 11:35 Freq: Status: Active Protocol: Document 11/27/20 11:22 CCC (Rec: 11/27/20 11:30 CCC [id number]) OT- Subjective Occupational Therapy Visit Type Type Treatment Note Visit Start Time 10:34 Visit Stop Time 10:51 Total Visit Minutes 17 Occupational Therapy Visit Comments Patient Comments Pt agreed to work with OT. Patient/Caregiver Goals TO get back to her prior level of function for her left arm and leg. OT Pain Assessment Pain When Pain Assessed At Rest Pain Present Pain Present Denied Pain M4 OT- IP ADL's Start: 11/24/20 11:35 Freq: Status: Active Protocol: Document 11/24/20 11:36 CGR (Rec: 11/24/20 11:53 CGR [id number]) OT [id number] Comments OT Self-Feeding Comments Pt states that she had trouble eating d/t the shaking in her hand. OT ADL-Grooming General Evaluation Grooming Ability Standby Assistance Comments OT Grooming Comments washed hands seated in w/c OT ADL-Oral Care Comments Oral Care Comments not performed OT ADL-Dressing General Eval Lower Body Dressing Ability Minimal Assistance,Moderate Assistance Areas Needing Assistance Socks Comments OT Dressing Comments Performed to the R foot only. Needed assist to get sock onto foot then pt was able to pull it into place OT ADL-Toileting General Evaluation Toileting Ability Minimal Assistance Comments OT Toileting Comments Pt was able to urinate seated on BSC and needed verbal cues for partial stand to perform front pericare but was able to perform without physical assist. OT ADL-Bathing Comments OT Bathing Comments not performed M5 OT- IP IADL's Start: 11/24/20 11:35 Freq: Status: Active Protocol: Document 11/24/20 11:36 CGR (Rec: 11/24/20 11:53 CGR [id number]) OT-Instrumental Activities of Daily Living Deficits IADL Deficits Identified Deficits Home Safety Awareness Awareness of Need for Assistance at Home Decreased Awareness Ability to Problem Solve Emergency Unable to Problem Solve Situations Medication Management Medication Management Comments Concern for pt's ability to perform Money Management Money Management Comments Concern for pt's ability to perform Meal Preparation Meal Preparation Comments Concern for pt's ability to perform Party Plan Salesperson Party Plan Salesperson Comments Concern for pt's ability to perform Driving Driving Concerns Identified Regarding Safety Driving Comments 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 M6 OT- IP Functional Cognition Start: 11/24/20 11:35 Freq: Status: Active Protocol: Document 11/26/20 11:34 CGR (Rec: 11/26/20 11:41 CGR [id number]) Cognitive Factors Limiting Selfcare Function Cognitive Ability Level of Alertness Alert Patient Orientation Name,Age,Birthday,Month,Date, Year,Day of Week,Place, Situation Attention Span Ability Capable of Focused Attention, Unable to Sustain Attention Ability to Follow Commands Able to Follow One Step Commands with Increased Time, Able to Follow One Step Commands with Repetition Cognitive Comments Cognitive Assessment Comments Pt is easily flustered and needs extra time for comprehension but is very receptive to therex and education. M7 OT- IP Mobility and Balance Start: 11/24/20 11:35 Freq: Status: Active Protocol: Document 11/27/20 11:22 CCC (Rec: 11/27/20 11:30 CCC [id number]) OT-Transfer Assessment Comments Mobility Comments Worked on scooting forwards and back in the recliner and assist to hold her left hand on the recliner and assist to hold her left knee in place so able to assist. Pt tends to use momentum of her right side to scoot forwards and has difficulty to break down the movement to be able to do so on her left side at this time. OT- Balance Assessment Sitting Balance and Reactions Static Sitting Balance Ability Fair Dynamic Sitting Balance Ability Poor M8 OT- IP Objective Assessments Start: 11/24/20 11:35 Freq: Status: Active Protocol: Document 11/24/20 11:36 CGR (Rec: 11/24/20 11:53 CGR [id number]) OT Gross Range of Motion Upper Extremity Range of Motion Assessment Left Impaired ROM Impairments AROM on LUE impaired d/t poor control and strength OT Strength Upper Extremity Strength Assessment Left Impaired Comments Strength Comments grossly 3- to 3+ to the LUE OT- Coordination Assessment Upper Extremity Finger to Nose Test Left UE Impaired Finger Tapping Test Left UE Impaired OT-Muscle Tone Assessment Muscle Tone WNL Yes OT Sensation Assessment Edema Edema Absent M9 OT- IP Assessment and Plan Start: 11/24/20 11:35 Freq: Status: Active Protocol: Document 11/27/20 11:22 [facility] (Rec: 11/27/20 11:30 [facility] [id number]) OT Summary Assessment and Plan Potential Rehabilitation Potential Good Analytic Complexity at Evaluation High Summary OT Impairments Range of Motion,Strength, Balance,Coordination, Functional Cognition, Functional Mobility,Self- Feeding,Grooming,Dressing, Toileting,Bathing,Toilet Transfers,Shower Transfers, Activity Tolerance Progress Towards Goals Slow Progress due to Medical Issues,Slow Progress due to Activity Tolerance,Slow Progress due to Cognition Assessment Summary Pt has trace movements except for wrist and fingers of left hand. Pt still very motivated to go to acute rehab. Goals Self-Feeding Goal Independent Grooming Goal Independent Dressing Goal Independent Toileting Goal Independent Bathing Goal Independent Toilet Transfer Goal Independent Shower Transfer Goal Independent Days to Meet Goals 45 Frequency of Treatment Frequency Of Treatment Once a Day Treatment Plan OT Treatment Plan ADL Training,Functional Cognition Training,Functional Mobility,Neuromuscular Re- education,Therapeutic Exercises,Patient/Family Education,Discharge Planning Discharge Recommendations OT Discharge Recommendations Acute Rehab Transportation Needs at Discharge Private Vehicle,Wheelchair/ Cabulance
--- NOTE | 2020-11-27 10:34 | P.DS_ITS ---
History of Present Illness History of Present Illness Date Patient Seen: 11/27/20 Time Patient Seen: 10:34 Chief complaint: Left sided weakness concerning for a CVA Narrative: Per ANGEL Lewis: Lesly Neri is a 65 y.o. female direct admit from [facility] for completion of a TIA workup. Patient has a history of hypertension, hyperlipidemia, depression and anxiety. She states that when she woke up this morning around 8 she started to text her sister and then went back to bed when she woke up at around 10:00 a.m. this morning she found that she had left-sided upper arm and left leg weakness. She found that she was dragging her left foot. She states that she was feeling horribly. She has an eaten all day. She state s she has had chills but denies any problems with eating, she endorses having a ?racing heart? which has been going on for 6 months, she denies shortness of breath or chest pain, she states that she has hunger pangs currently recently had a colonoscopy and felt that ever since the colonoscopy things have been ?wrong? in her abdomen. She states she has a history of chronic pain, she has been itching in her arms of which primary providers have seen her for and do not what know what the reason is, she states that she is depressed [facility]. She states that she has easy bruising and left hip are arthritis and goes to a chiropractor. She has recently established with Dr. jerome and mildred in [place] as her primary care physician however prefers ?natural? or alternative medicine modalities. Patient states she has been under a lot of stress because she was called to a friend's house and found out that her friend had while out of town and has been cleaning her friends condominium out over the past few months. 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 She has not had the COVID-19 vaccine as she is unsure of its long-term affects. At [facility] they did a CT of the angio of the neck as well as the head both of studies of which were negative. On admission the patient is afebrile, blood pressure 156/79, heart rate 70, respiratory rate 17, oxygen saturation 99% on room air, she weighs 103.2 kg with a BMI of 31.7. Labs sent over for [facility] included WBC of 7.6 RBC 4.75 hemoglobin 14.4 hematocrit of 42.2 and a platelet count of 327, sodium is 135 potassium 4.3 chloride 97 bicarb 27 creatinine 1.1 with a EGFR of 50 BUN 11, glucose 116, calcium 9.6, liver enzymes are all within normal limits, UA was negative for UTI and viral PCR and COVID-19 PCR is negative. EKG done at [facility] was a normal sinus rhythm with normal morphology. A1c is 5.7 not indicating diabetes, Discharge Providers Provider Date of admission: 11/23/20 21:36 Discharge Date: 11/27/20 Consults: 11/23/20 23:37 Consult to Occupational Therapy Evaluate & Treat Comment: Physician Instructions: Evaluate and treat Consult to Speech Therapy Evaluate & Treat Comment: Physician Instructions: Evaluate and treat 11/24/20 Consult to Physical Therapy Evaluate & Treat Comment: Left sided weakness, r/o TIA Physician Instructions: Evaluate and Treat Discharge provider: Naveed Milian DO Summary Hospital Course Discharge Diagnosis: 1. R pontine CVA, acute, present on admission. 2. Hypertension 3. Hyperlipidemia 4. Depression and anxiety Hospital Course: This is a 65-year-old female with a past medical history of hypertension, hyperlipidemia, and depression and anxiety who presented initially as a TIA but symptoms progressed to left-sided weakness after she was transferred from [facility]. According to documentation her initial stroke scale was 10, which has improved slightly over the course of her stay. She was initially started on aspirin and Plavix however given her elevated NIH stroke scale greater than 5 she should only continue on aspirin as an outpatient. Her usual home atorvastatin was increased to 80 mg, patient's blood pressure has been controlled on lisinopril 10 mg daily which was changed from her home hydrochlorothiazide. Further evaluation to consider as an outpatient would be a Holter monitor, however no evidence of atrial fibrillation was noted and her echocardiogram was also unremarkable. Patient was seen and evaluated bed physical therapy, occupational therapy, and speech therapy. She was recommended for transfer to acute rehab for further rehabilitation after her acute CVA. She is currently on a mechanical soft diet. Status at Discharge Cognitive/behavioral status at discharge: oriented Overall status at discharge: patient is progressing back to baseline Time Spent with Patient Time spent: Greater than 30 minutes Exam Vital Signs (past 8 hours): - 11/27/20 04:00 11/27/20 07:00 11/27/20 08:00 Temperature 97.7 F 98.2 F Pulse Rate 61 75 Respiratory Rate 17 17 Blood Pressure 131/57 L 133/64 Pulse Oximetry 97 98 98 11/27/20 09:45 Temperature Pulse Rate 73 Respiratory Rate Blood Pressure Pulse Oximetry 100 Oxygen Delivery Method Room Air Oxygen Flow Rate 0 Narrative Exam Narrative: Gen: Alert, oriented, well-nourished 65 y.o. female, cushionoid appeariing HEENT: normocephalic, atraumatic, conjunctiva clear, sclera non-icteric, oral mucosa pink and moist Neck: supple, full ROM, no JVD, trachea is midline Resp: Lungs CTA, non-labored breathing CV: RRR, no murmur or rubs Abd: soft, non-tender, normoactive BTs Skin: no lesions or rashes Neuro: Alert and oriented . LUE paralysis, LLE weak, L facial droop. No reported deficits in sensation to light touch. Speech mildly slurred with facial droop but no difficulties with word finding. Extremities: moves all 4 extremities, is ambulatory, negative Bebeto?s sign, trace bilateral edema Psyche: Mildly anxious affect Objective Labs Result Diagrams: 11/24/20 00:38 11/24/20 00:38 Labs: Laboratory Results - last 24 hr 11/27/20 09:30 SARS-CoV-2 (PCR) Negative [facility] Medical History Depression with anxiety Essential hypertension HLD (hyperlipidemia) Surgical History History of bunionectomy Hx of removal of thyroglossal duct cyst Hx of tonsillectomy Family History Mother Kidney failure Father Congestive heart failure CVA (cerebral vascular accident) Sister CVA (cerebral vascular accident) Diabetes mellitus DVT (deep venous thrombosis) Social History household members: none Smoking Status: Never smoker alcohol intake: never Discharge Plan Discharge Plan Patient Disposition: Xfer Inpatient Rehab Other facility: [facility] Under care of provider: Dr. Valdes Provider Discharge Comment: This is a 65-year-old female with a past medical history of hypertension, hyperlipidemia, and depression and anxiety who presented initially as a TIA but symptoms progressed to left-sided weakness after she was transferred from [facility]. According to documentation her initial stroke scale was 10, which has improved slightly over the course of her stay. She was initially started on aspirin and Plavix however given her elevated NIH stroke scale greater than 5 she should only continue on aspirin as an outpatient. Her usual home atorvastatin was increased to 80 mg, patient's blood pressure has been controlled on lisinopril 10 mg daily which was changed from her home hydrochlorothiazide. Further evaluation to consider as an outpatient would be a Holter monitor, however no evidence of atrial fibrillation was noted and her echocardiogram was also unremarkable. Patient was seen and evaluated bed physical therapy, occupational therapy, and speech therapy. She was recommended for transfer to acute rehab for further rehabilitation after her acute CVA. She is currently on a mechanical soft diet. Discharge orders & Medications Discharge Orders: Discharge (Order); Ordered 11/27/20 Ordered By: Naveed Milian Prescriptions: New atorvastatin 80 mg tablet 80 mg PO DAILY 30 Days Qty: 30 RF: 0 aspirin 81 mg Tablet,Delayed Release (Dr/Ec) 81 mg PO DAILY 30 Days Qty: 30 RF: 0 sennosides [senna] 8.6 mg Tablet 8.6 mg PO BEDTIME 14 Days Qty: 14 RF: 0 acetaminophen 325 mg Tablet 650 mg PO Q6HR PRN (Reason: Fever/Mild Pain (1-3)) 30 Days Qty: 90 RF: 0 lisinopril 10 mg Tablet 10 mg PO DAILY 30 Days Qty: 30 RF: 0 Continued fluoxetine 20 mg Capsule 60 mg PO DAILY RF: 0 hydroxyzine pamoate 25 mg Capsule 75 mg PO BEDTIME RF: 0 temazepam 15 mg Capsule 30 mg PO BEDTIME RF: 0 buspirone 10 mg Tablet 10 mg PO DAILY RF: 0 clotrimazole [Clotrimazole Anti-Fungal] 1 % Cream 1 applic TOPICAL TID RF: 0 cholecalciferol (vitamin D3) [Vitamin D3] 50 mcg (2,000 unit) Tablet 75 mcg PO DAILY RF: 0 Discontinued atorvastatin 40 mg Tablet 40 mg PO DAILY RF: 0 hydrochlorothiazide 25 mg Tablet 25 mg PO DAILY RF: 0 Discharge Health Status Multidrug resistant organism: No MDRO Precautions: [place]ino Diet/Activity/Treatments Diet: Diet as Tolerated Liquid consistency: Normal/Thin Food texture: Soft Diet comment: Mechanical Soft Activity: As tolerated [facility] Reason for rehabilitation: Therapy following stroke Rehab type: Physical therapy, Occupational therapy and Speech therapy Visit Report/Discharge Packet Instructions: Brainstem Stroke, Right Brain Stroke Quality VTE Deep Vein Thrombosis/Pulmonary Embolism Present on Admission: No
--- NOTE | 2020-11-27 10:45 | CM.DPNOTE ---
Faxed recent PN, PT/ST to [facility] In[facility] Rehab per Diane's request and received confirm. Pinky Hyman CM Asst.
--- NOTE | 2020-11-27 11:07 | PT-IP ANOTE ---
Patient with speech therapy and not available for PT. Will check back later for physical therapy treatment.
--- NOTE | 2020-11-27 11:20 | ST.IPTN ---
Visit Care Team Role Provider Type ANGEL Lewis Admit Provider Physician Attending Provider Referring Provider Address: [address] [place] [address], [id number] CHOIR SINGER Treatment Note CHOIR SINGER Clinical Instructor Line Start: 11/26/20 12:18 Freq: Status: Discharge Protocol: Document 11/26/20 16:33 HEMA (Rec: 11/26/20 16:33 HEMA [id number]) Clinical Instructor Signature Clinical Instructor Clinical Instructor Yes CHOIR SINGER Treatment Note Start: 11/26/20 09:32 Freq: Status: Discharge Protocol: Document 11/27/20 14:21 TLC (Rec: 11/27/20 14:33 TLC [id number]) Speech Pathology Treatment Note Session Time Visit Start Time 10:50 Visit Stop Time 11:20 Total Visit Minutes 30 Setting Treatment Setting Acute Care Visit Type Note Type Treatment Note Subjective Identification Type Name Observations/Patient Presentation Patient was reclined in chair in room after working with OT. She greeted me at the door and agreed to participate in therapy. Chief Complaint(s) Speech,Swallowing,Cognitive Patient Knowledge/Awareness of CHOIR SINGER Role Good in Treatment Objective Short Term Goals Pt will follow safe swallowing precautions with minimal verbal reminders to reduce risk of aspiration. - GOAL MET Pt will participate in education re: dysarthria, dysphagia, and memory strategies. - GOAL MET Treatment Activities Discussed results of patient's cognitive screen on 11/24/20 ( on [facility]). Patient missed points for clock drawing and mental math. She recalled 4/5 objects after a short delay. I discussed that her score could indicate a mild neurocognitive impairment . Patient denied any difficulty with memory, but endorsed some recent issues with spelling simple words when texting (she says she is a good speller at baseline) and difficulty learning to use a new smart phone. Assessment Patient Response to Treatment Good Rehab Potential Good Progress Towards Goals Good Progress Assessment of Overall Progress Improving Assessment of Improvement Patient appears to compensate well for known impairments ( uses lists,has direct deposit set up, no issues with medication management); however, her awareness of deficits may be impaired and further testing is recommended . Patient admits that stress and anxiety impact her cognitive function and she has practiced meditation and seen a counselor in the past. Further cognitive testing in the inpatient rehab setting is warranted. No impairments in word finding noted during our 30 minute conversation. Patient denies any difficulty with chewing or swallowing. Reviewed with Patient Progress Being Made,Home Exercise Program Patient/Caregiver Understanding Good Plan Comment continue ST at inpatient rehab Therapy Recommendations Discharge from Speech Therapy
--- NOTE | 2020-11-27 11:50 | PC.NURSE ---
Addendum entered by Johanna Rosas R.N. 11/27/20 13:48: Patient taken via cabulance to acute rehab, report called, patient had all belongings, including bag of home medications that was stored in the pharmacy. Original Note: Patients IV in Left AC red and swollen, IV removed. Patient discharging later this afternoon.
[2020-11-27 12:00] VITALS: BP 130/58; PULSE 66; RESP 18; TEMP 36.8; O2SAT 96
--- NOTE | 2020-11-27 12:30 | PT.IPTN ---
Current Diagnoses Cerebral infarction, unspecified (11/23/20) Physical Therapy Treatment Note M2 PT-IP Current Condition Start: 11/24/20 12:29 Freq: NEEDED Status: Active Protocol: Document 11/24/20 10:50 AB (Rec: 11/24/20 12:42 AB [id number]) Physical Therapy Current Condition Current Condition Evaluation Date 11/24/20 Treatment Diagnosis CVA L sided weakness; difficulty in walking Onset Date 11/23/20 Precautions Other Precautions falls M3 PT-IP Subjective Start: 11/24/20 12:29 Freq: NEEDED Status: Active Protocol: Document 11/27/20 12:30 DLM (Rec: 11/27/20 13:33 DLM [id number]) Subjective Physical Therapy Visit Type Type Treatment Note Visit Start Time 12:00 Visit Stop Time 12:30 Total Visit Minutes 30 Number of SERICULTURIST Visits 0 Physical Therapy Visit Comments Patient Comments She feels anxious to move to the rehab center. Patient Goals get better Therapy Pain Assessment Pain When Pain Assessed During Mobility Pain Present Pain Present Denied Pain M4 PT-IP Mobility and Gait Start: 11/24/20 12:29 Freq: NEEDED Status: Active Protocol: Document 11/27/20 12:30 DLM (Rec: 11/27/20 13:33 DLM [id number]) PT-Bed Mobility Assessment Scooting Scooting to Edge of Bed Minimal Assistance PT-Transfer Assessment Sit to and From Stand Sit to and from Stand Moderate Assistance,Use of Upper Extremities Equipment Transfer Assistive Device Gait Belt,Harley Walker Comments Mobility Comments She needs v.c. to transition weight forward to improve Sit- stand, left LE prone to push out into full extensor synergy during sit-stand. Pt up in recliner and staying up for lunch. Gait Assessment Gait Gait Assistance Required: Moderate Assistance Assistive Devices Assistive Device Gait Belt,Harley Walker Comments Gait Comments Stepping in place activity with harley-walker, jessica wrap use on left knee to increase proprioception and facilitate knee control with weight bearing, noted increase in extensor tone in left LE during some functional movements. PT-Balance Assessment Sitting Balance and Reactions Static Sitting Balance Ability Fair Dynamic Sitting Balance Ability Fair Standing Balance and Reactions Static Standing Balance Ability Fair Dynamic Standing Balance Ability Poor Device Used Harley-walker Comments Other Balance Tests/Deviations/Treatment Static standing, weight : shifting and education for positional awareness M5 PT-IP Objective Assessments Start: 11/24/20 12:29 Freq: NEEDED Status: Active Protocol: Document 11/24/20 10:50 AB (Rec: 11/24/20 12:42 AB [id number]) Orientation Orientation/Cognition Level of Alertness Alert Orientation Name,Place,Situation Safety Awareness Decreased Safety Awareness Gross Range of Motion Lower Extremity ROM Assessment Within Functional Limits Strength Lower Extremity Strength Assessment Left Impaired Hip 3+/5 Knee 3/5 Muscle Tone Muscle Tone WNL Yes M6 PT-IP Treatment Start: 11/24/20 12:29 Freq: NEEDED Status: Active Protocol: Document 11/27/20 12:30 DLM (Rec: 11/27/20 13:33 DLM [id number]) Physical Therapy Treatment Exercises Exercises Ankle Pumps,Seated Knee Flexion/Extension Education Education Provided Safety Other Treatments Other Treatment Performed seated hip flexion, noted synergy with hip flexion/knee flexion/DF, she fatigues and tolerated only 8 reps on left M7 PT-IP Assessment and Plan Start: 11/24/20 12:29 Freq: NEEDED Status: Active Protocol: Document 11/27/20 12:30 DLM (Rec: 11/27/20 13:33 DLM [id number]) PT Summary Assessment and Plan Summary Impairments Pain,ROM,Strength,Balance, Coordination,Sensation,Tone, Cognition,Bed Mobility, Transfers,Gait,Activity Tolerance Progress Towards Goals Slow Progress - Other Assessment Summary Lesly is alert and up in recliner today. Noted an increase in synergistic movement patterns in left LE during mobility with flexion during hip flexion exercise and extension during sit-stand . She tolerated using the harley -walker well. May need to use a sling on left UE when using the harley-walker to better manage her symptoms of pulling in left UE when handing by her side. She continues to need physical cuing left knee to maintain knee extension for functional weight bearing or she lfety. Pt left up in chair for lunch. Continue to recommend In-pt rehab at discharge. Goals Bed Mobility Goal Standby Assistance Transfer Goal Minimal Assistance,Front Wheeled Walker Gait Goal Minimal Assistance,Front Wheel Walker Gait Distance 10 Other Goals propel wheelchair with SBA x 100 feet Days to Meet Goals 7 Frequency of Treatment Frequency Of Treatment Twice a Day Treatment Plan Physical Therapy Treatment Plan Bed Mobility Training,Transfer Training,Gait Training, Therapeutic Exercise,Balance Retraining,Discharge Planning, Neuromuscular Re-ed, Coordination Retraining Other Recommendations and Next Treatment continue trial with harley- Focus walker Recommendations To Nursing Amount of Assist Needed 2 Person Assist Discharge Recommendations PT Discharge Recommendations SNF vs Acute Rehab Transportation Needs at Discharge Wheelchair/Cabulance
--- NOTE | 2020-11-27 15:05 | CM.DANOTE ---
DCP/continued: Received call this AM from Merry at [facility], she reports that they have received authorization for inpatient acute rehabilitation. Met with patient to confirm plan. Patient aware and agreeable to plan. Patient reports that she has no family that can transport to [facility]. BOILER WATER TESTER spoke with [facility] transport and they are agreeable to take patient to [facility] and bill her for the transport (approx $145.00). Per Angelique at [facility] if patient does not pay bill she has been instructed to send bill to Care Management Department (aKtrin perera). In the meantime, BOILER WATER TESTER spoke with patient's sister Roseline in [place]. Roseline aware of current circumstance and plans to be in [place]. when patient discharges from Acute Rehab. Sister plans to assist with continued care until patient stable enough for her to leave. Roseline aware of bill that will be sent to patient from [facility]. Sister does not anticipate any issue with paying it when she arrives. Also spoke with patient's friend/neighbor she also reports that she can assist patient with some daily activities i.e. shopping, meals, etc... Both friend and sister given number of contact lens cutter at [facility]. Patient anticipated to be in acute rehabilitation for 2-3 weeks. P: [facility] Acute Rehabilitation today. MATTHEW Bullard
== END 2020-11-27 13:49 | DRG 65 ==
PROVIDERS: Internal Medicine; Admitting Provider Nurse Practitioner Family; Referring Provider Nurse Practitioner Family; Visit Provider Nurse Practitioner Family
DX: I63.9 Cerebral infarction, unspecified (principal); G81.04 Flaccid hemiplegia affecting left nondominant side; I10 Essential (primary) hypertension; E78.5 Hyperlipidemia, unspecified; F32.9 Major depressive disorder, single episode, unspecified; F41.9 Anxiety disorder, unspecified; R29.710 NIHSS score 10
CPT/HCPCS: 36415; 70548; 70553; 80048; 80061; 80076; 83036; 83735; 84443; 85025; 87635; 92507; 92610; 93306; 94760; 97110; 97112; 97162; 97167; 97530; 97535; 97542; C9803; J1650